=== PATIENT | female | born 1995 | race Caucasian/White ===

== ENCOUNTER → 2022-09-13 | Outpatient (CLI) | payer OTHER, SELFPAY ==
[2022-09-20 12:31] LABS: HPV Reflexed? NOT INDICATED
== END | disposition home or self-care (01) ==
LOC: LABSPEC 12:25
PROVIDERS: PCP Pediatrics; Referring Provider Registered Nurse; Visit Provider Registered Nurse
DX: Z12.4 Encounter for screening for malignant neoplasm of cervix (principal)
CPT/HCPCS: 88175; G0145

== ENCOUNTER → 2023-03-10 | Outpatient (CLI) | payer OTHER, SELFPAY ==
[2023-03-14 22:07] LABS: Chlamydia By Nucleic Acid AMP Negative (Negative); Gonococcus By Nucleic Acid AMP Negative (Negative)
== END | disposition home or self-care (01) ==
LOC: LABSPEC 16:44
PROVIDERS: Visit Provider Advanced Practice Midwife
DX: Z34.90 Encounter for supervision of normal pregnancy, unspecified, unspecified trimester (principal)
CPT/HCPCS: 87086; 87088; 87491; 87591

== ENCOUNTER → 2023-04-04 | Outpatient (CLI) | payer OTHER, SELFPAY ==
[2023-04-04 17:05] LABS: Absolute Lymphocyte Count 2.59 X10^3/uL (0.83-4.51); Absolute Neutrophil Count 5.6 X10^3/uL (2.0-7.7); Basophil# 0.05 X10^3/uL; Basophil% 0.5 % (0-1); Eosinophil# 0.27 X10^3/uL; Eosinophils% 2.9 % (0-5); Hematocrit 40.5 % (37-47); Hemoglobin 13.3 g/dL (12.0-15.0); Lymphocyte # 2.59 X10^3/ul (0.83-4.51); Lymphocyte % 28.2 % (19-41); Mean Corp Hgb Conc 32.8 g/dL (32-36); Mean Corpuscular Hgb 28.7 pg (27.0-32.0); Mean Corpuscular Volume 87.3 fL (81-99); Mean Platelet Vol. 10.5 fl (6.2-12.0); Monocyte# 0.61 X10^3/uL; Monocyte% 6.6 % (0-10); NRBC Flagged by Analyzer 0 % (0-5); Neutrophil # 5.64 X10^3/uL (2.7-7.7); Neutrophil % 61.4 % (47-70); Platelet Count 249 K/mm3 (150-450); RBC Distribution Width CV 13.2 % (11.6-14.6); RBC Distribution Width SD 41.7 fl (35.1-43.9); Red Blood Count 4.64 M/mm3 (4.2-5.4); White Blood Count 9.2 K/mm3 (4.4-11.0)
[2023-04-04 18:59] LABS: HIV - WCH Non-Reactive (Nonreactive); Hepatitis B Surface Antigen Non-Reactive (Nonreactive); Hepatitis C Antibody Non-Reactive (Nonreactive); Rubella IgG Reactive (Nonreactive); Syphilis Antibodies Non-reactive
== END | disposition home or self-care (01) ==
LOC: LAB 16:32
PROVIDERS: Referring Provider Advanced Practice Midwife; Visit Provider Advanced Practice Midwife
DX: Z34.90 Encounter for supervision of normal pregnancy, unspecified, unspecified trimester (principal)
CPT/HCPCS: 36415; 85025; 86703; 86762; 86780; 86803; 86850; 86900; 86901; 87340

== ENCOUNTER → 2023-06-07 | Outpatient (CLI) | payer OTHER, SELFPAY ==
--- OUTSIDE RECORDS SUMMARY | 2023-06-07 17:55 | XMS RPT_ITS | CCD ---
Author Name Unknown Address [facility]ly [facility], [facility] [address] [place] [address] Organization [facility] Care Team Providers Care Disintegrator Operator Name Role Phone KOURTNEY VÁSQUEZ (NICO) Unavailable UnavailBRITTNEY Barcenas Unavailable Unavailable KAMALA SIMON Attending Unavailable ARY PRIMARY CAREMD Primary Care Unavailable GISELLA MAJANO Referring Unavailab kyree TORRES MD Primary Care Unavailable GISELLA MAJANO Referring Unavailab KAMALA Navarro Attending Unavailable Allergies Allergy Classification Reported Allergen(s) Allergy Type Date of Onset Reaction(s) Facility (1 source) amoxicillin; Translations: [AMOXICILLIN] Drug Allergy 5 [facility] (1 source) clarithromycin; Translations: [CLARITHROMYCIN] Drug Allergy 5 [facility] (1 source) OTHER; Translations: [OTHER] Propensity to adverse reactions (disorder) 9 [facility] (1 source) FLAVORING AGENT; Translations: [FLAVORING AGENT] Propensity to adverse reactions to drug (disorder) 5 [facility] Results Test Name Value Interpretation Reference Range Facil ity Encounters Encounter Date Encounter Type Care Provider Facility Start: 06-06-2023 End: 06-06-2023 ambulatory [facility] Start: 05-18-2023 End: 05-18-2023 ambulatory [facility] Start: 01-05-2017 End: 01-05-2017 Ambulatory BRITTNEY DYER [facility] Start: 12-27-2016 End: 12-27-2016 Ambulatory KOURTNEY Benavidez (NICO) FAHAD [facility] jim Payers Date Payer Category Payer Unknown [id number] 1995 Unknown [id number] Unknown [id number] Summary Purpose Family History No Family History Records FoundNo Family History Records Found Advance Directives No Advanced Directives Records FoundNo Advanced Directives Records Found Additional Source Comments INFORMATION SOURCE (unrecogn ized section and content) DATE CREATED AUTHOR AUTHOR'S ORGANIZ ATION 06/07/2023 [facility] FOR RECORDS PERTAINING TO PATIENTS WHO ARE OR HAVE BEEN ENROLLED IN A CHEMICAL DEPENDENCY/SUBSTANCEABUSE PROGRAM, SOME INFORMATION MAY BE OMITTED. This clinical summary was aggregated from multiple sources. Caution should be exercised in using it in the provision of clinical care. This summary normalizes information from multiple sources, and as a consequence, information in this document may materially change the coding, format and clinical context of patient data. In addition, data may be omitted in some cases. CLINICAL DECISIONS SHOULD BE BASED ON THE PRIMARY CLINICAL RECORDS. [facility]. provides no warranty or guarantee of the accuracy or completeness of information in this document.
[2023-06-07 18:02] LABS: NATERA MAILED SPECIMEN
== END | disposition home or self-care (01) ==
LOC: LAB 16:53
PROVIDERS: Referring Provider Obstetrics & Gynecology; Visit Provider Obstetrics & Gynecology
DX: Z34.82 Encounter for supervision of other normal pregnancy, second trimester (principal); Z31.5 Encounter for procreative genetic counseling
CPT/HCPCS: 36415

== ENCOUNTER 2023-07-21 14:37 | Outpatient (CLI) | payer OTHER, SELFPAY ==
[2023-07-21 15:36] LABS: Absolute Lymphocyte Count 0.94 X10^3/uL (0.83-4.51); Absolute Neutrophil Count 3.9 X10^3/uL (2.0-7.7); Basophil# 0.03 X10^3/uL; Basophil% 0.6 % (0-1); Eosinophil# 0.03 X10^3/uL; Eosinophils% 0.6 % (0-5); Hematocrit 37.3 % (37-47); Hemoglobin 12.3 g/dL (12.0-15.0); Lymphocyte # 0.94 X10^3/ul (0.83-4.51); Mean Corpuscular Hgb 30.5 pg (27.0-32.0); Mean Corpuscular Volume 92.6 fL (81-99); Mean Platelet Vol. 11.2 fl (6.2-12.0); Monocyte# 0.23 X10^3/uL; Monocyte% 4.4 % (0-10); NRBC Flagged by Analyzer 0 % (0-5); Neutrophil # 3.92 X10^3/uL (2.7-7.7); Neutrophil % 75.2 % (47-70); Platelet Count 184 K/mm3 (150-450); RBC Distribution Width SD 47.8 fl (35.1-43.9); Red Blood Count 4.03 M/mm3 (4.2-5.4); White Blood Count 5.2 K/mm3 (4.4-11.0)
[2023-07-21 16:28] LABS: Glucose Challenge Gest 1H 50g 86 mg/dL (70-140)
[2023-07-21 16:53] LABS: HIV - WCH Non-Reactive (Nonreactive); Syphilis Antibodies Non-reactive
== END 2023-07-21 23:59 | disposition home or self-care (01) ==
LOC: LAB 14:38
PROVIDERS: Referring Provider Obstetrics & Gynecology; Visit Provider Obstetrics & Gynecology
DX: O26.899 Other specified pregnancy related conditions, unspecified trimester (principal); Z67.91 Unspecified blood type, Rh negative; Z3A.00 Weeks of gestation of pregnancy not specified; Z13.1 Encounter for screening for diabetes mellitus
CPT/HCPCS: 36415; 82950; 85025; 86703; 86780; 86850; 86900; 86901

== ENCOUNTER → 2023-09-14 | Outpatient (CLI) | payer OTHER, SELFPAY | END | disposition home or self-care (01) | PROVIDERS: Visit Provider Obstetrics & Gynecology | DX: Z34.90 Encounter for supervision of normal pregnancy, unspecified, unspecified trimester (principal) | CPT/HCPCS: 87081 ==

== ENCOUNTER 2023-10-03 19:25 | Inpatient (IN) | payer OTHER, SELFPAY ==
[2023-10-03 19:42] VITALS: BMI 22.4
[2023-10-03 19:47] VITALS: BP 113/83; PULSE 74; RESP 16; TEMP 37.1; O2SAT 97
[2023-10-03 20:22] LABS: Absolute Lymphocyte Count 2.71 X10^3/uL (0.83-4.51); Absolute Neutrophil Count 6.4 X10^3/uL (2.0-7.7); Basophil# 0.03 X10^3/uL; Basophil% 0.3 % (0-1); Eosinophil# 0.11 X10^3/uL; Eosinophils% 1.1 % (0-5); Hematocrit 38.4 % (37-47); Hemoglobin 13.2 g/dL (12.0-15.0); Lymphocyte # 2.71 X10^3/ul (0.83-4.51); Lymphocyte % 27.3 % (19-41); Mean Corp Hgb Conc 34.4 g/dL (32-36); Mean Corpuscular Volume 90.1 fL (81-99); Mean Platelet Vol. 11.4 fl (6.2-12.0); Monocyte# 0.62 X10^3/uL; Monocyte% 6.3 % (0-10); NRBC Flagged by Analyzer 0 % (0-5); Neutrophil # 6.37 X10^3/uL (2.7-7.7); Neutrophil % 64.3 % (47-70); Platelet Count 211 K/mm3 (150-450); RBC Distribution Width CV 13.2 % (11.6-14.6); RBC Distribution Width SD 43.7 fl (35.1-43.9); Red Blood Count 4.26 M/mm3 (4.2-5.4); White Blood Count 9.9 K/mm3 (4.4-11.0)
[2023-10-03 21:14] LABS: Syphilis Antibodies Non-reactive
[2023-10-03] MEDS: Lactated Ringers 1,000 ML 50 ML IV (21:42)
[2023-10-03] MEDS: Oxytocin 15 Units/NS 250ml 15 UNITS/250 ML IV.SOLN 2 UNITS IV (21:42)
[2023-10-03] MEDS: 0.9% Saline Lock 10 ML Syringe IV (21:42)
[2023-10-03 21:50] VITALS: BP 107/78; PULSE 62
[2023-10-03 21:51] VITALS: RESP 16; TEMP 37.3; O2SAT 94
--- NOTE | 2023-10-03 22:03 | HP.PCM.OB_ITS ---
HPI - General General Date of Admission: 10/03/23 HPI Narrative YRN DELAROSA, is a 27 y/o @ 39 weeks who presents to L&D after rom plus was noted to be positive from office. The patient had been leaking scant fluid since Tuesday last week. No fevers or chills. She was found to be 2.5/80/-1 in office and ARVIN was 9. She is RH negative and GBS negative. Her baby has a known ventricular septal defect and our pediatricians in [place] are aware. Maternal Data Information MARQUIS Calculator Estimated Delivery Date Method Current WG Current Estimate 10/10/23 LMP (Certain) 39w 1d PFSH PFS Medical History Abnormal Pap smear of cervix Home Medications ?Medication ?Instructions ?Recorded ?Last Taken ?Type multivitamin no.47-iron fum 27 1 cap PO DAILY 03/10/23 10/02/23 History mg-folate no.1 1 mg-dha 300 mg capsule (PNV-DHA) RhoGAM Ultra-Filtered PLUS 1,500 1,500 unit IM ONCE #1 ea 07/22/23 Unknown Clinic unit (300 mcg) intramuscular syringe (rho(D) immune globulin) Allergy/AdvReac Type Severity Reaction Status Date / Time amoxicillin Allergy Mild Hives Verified 10/03/23 21:17 clarithromycin (From Biaxin) Allergy Mild Hives Verified 10/03/23 21:17 Family History Grandmother Breast cancer, Onset Age: 60 Social History adopted: No household members: spouse housing: apartment current occupational status: employed 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 current occupational exposures/hazards: No pets and animals: No history of recent travel: No sexually active: Yes Smoking Status: Never smoker second hand exposure: No alcohol intake: current details: socially - not while substance use type: does not use during the past year weight has: remained stable what type of physical activity do you participate in: running frequency: 5-6 times per week osbaldo/yarsani: [employer] seatbelt use: always do you feel safe at home: Yes additional social history: Indra FRAUSTO at [employer] History 1 Elective abortions Hx Para 0 Spontaneous abortions Hx # Term Pregnancies Ectopic pregnancies Hx # Pregnancies Multiple births # of living children Visit Details Expected Delivery Route/Plan Labor Preferences- CB/BF classes: yes labor support person: Indra labor intervention preferences: pain management options preferred: prefer minimal intervention, open to touch, massage, counting breathing, hydrotherapy cut cord/dad catch: indra yes! : yes PP control planned: [] discussed possible routes of delivery and associated risks: [] special requests: [] Plans Covid status: [] Flu vaccine: dec Tdap vaccine: given Rhogam: na LARC form signed: declined movement and labor precautions reviewed. Problem list reviewed and updated with the most current plan of care details and appropriate orders placed. Relevant counseling for the gestational age provided. Continue routine care and follow up unless otherwise noted in visit notes/problem list details OB Flowsheet Initial Weight: Not Recorded Date -?-?-?--?-?-?-?-?-?-?-?-?- EGA Weight BP Urine Prot -?-?-?-?-?-?-?-?-?-?-?-?- Glucose FHR FuHt Pres Dilation -?-?-?-?-?-?-?-?-?-?-?-?- Effaced St Visit Note 03/10/23 -?-?-?-?-?-?-?-?-?-?-?-?- 9w 3d 126 lb 8 oz 119/79 -?-?-?-?-?-?-?-?-?-?-?-?- 181 -?-?-?-?-?-?-?-?-?-?-?-?- KW-CRL cons with dates. undecided NIPT. 04/04/23 -?-?-?-?-?-?-?-?-?-?-?-?- 13w 0d 129 lb 6 oz 113/71 Nega tive -?-?-?-?-?-?-?-?-?-?-?-?- Negative 156 -?-?-?-?-?-?-?-?-?-?-?-?- JV- no complaint s today. anatomy ultrasound ordered with [facility]. declines NIPT. 05/02/23 -?-?-?-?-?-?-?-?-?-?-?-?- 17w 0d 134 lb 8 oz 97/52 Nega tive -?-?-?-?-?-?-?-?-?-?-?-?- Negative 154 -?-?-?-?-?-?-?-?-?-?-?-?- JV- no complaint s today. not feeling movement yet. no cramping or spotting. 06/03/23 -?-?-?-?-?-?-?-?-?-?-?-?- 21w 4d 138 lb 2 oz 117/71 Nega tive -?-?-?--?-?-?-?-?-?-?-?-?- Negative 155 -?-?-?-?-?-?-?-?-?-?-?-?- JV- FOB diagnose d with FAP and nervous baby is at 50% chance of having this. plan for testing after delivery. now wants NIPT and carrier testing. baby has a VSD and echo is scheduled. 06/28/23 -?-?-?-?-?-?-?-?-?-?-?-?- 25w 1d 141 lb 112/70 Negative -?-?-?-?-?-?-?-?-?-?-?-?- Negative 147 -?-?-?-?-?-?-?-?-?-?-?-?- JV- pt is a lima ier now for CF, usher syndrom and AR polycystic kidney disease. FOB being tested. heart defect on echo- peds here does not feel comfortable with us delivering here. GCT ordered. 07/21/23 -?-?-?-?-?-?-?-?-?-?-?-?- 28w 3d 140 lb 105/65 105/65 Negative -?-?-?-?-?--?-?-?-?-?-?-?- Negative 145 -?-?-?-?-?-?-?-?-?-?-?-?- Sm- Sm- no vb lof good fm n oreg ualr ctx discussed testing FOB for rh blood type and redraw for extended carrier panel, wrong lab drawn previously. 08/03/23 -?-?-?-?-?-?-?-?-?-?-?-?- 30w 2d 142 lb 2 oz 106/68 Nega tive -?-?-?-?-?-?-?-?-?-?-?-?- Negative 144 28 -?-?-?-?-?-?-?-?-?-?-?-?- JV- should know after August where can deliver. sounds like 99% sure can deliver with us. 08/25/23 -?-?-?-?-?-?-?-?-?-?--?-?- 33w 3d 143 lb 102/62 Negative -?-?-?-?-?-?-?-?-?-?-?-?- Negative 140 32 -?-?-?-?-?-?-?-?-?-?-?-?- SM- no vb lof go od fm n reular ctx. MFM recommendeddelivery here, will obtain echo report and discuss with peds to obtain permission 09/07/23 -?-?-?-?-?-?-?-?-?-?-?-?- 35w 2d 142 lb 6 oz 119/69 Nega tive -?-?-?-?-?-?-?-?-?-?-?-?- Negative 135 34.5 Cephalic -?-?-?-?-?-?-?-?-?-?-?-?- JV- no JV- FOB asks if she is suppo sed to have nsts. no mention in MFM note but will send them a message. no complaints toda. 09/14/23 -?-?-?-?-?-?-?-?-?-?-?-?- 36w 2d 141 lb 6 oz 110/68 Nega tive -?-?-?-?-?-?-?-?-?-?-?-?- Negative 140 33 Cephalic 1 .5 -?-?-?-?-?-?-?-?-?-?-?-?- 70 0 KW-no vb/l of/ctx. good fm. GBS today. has growth next week with MFM. ARVIN-9 per JV scan 09/22/23 -?-?-?-?-?-?-?-?-?-?-?-?- 37w 3d 140 lb 105/74 -?-?-?-?-?-?-?-?-?-?-?-?- 140 35 Cephalic -?-?-?-?-?-?-?-?-?-?-?-?- SM- no vb lof go od fm no regular ctx 09/27/23 -?-?-?-?-?-?-?-?-?-?-?-?- 38w 1d 143 lb 106/68 -?-?-?-?-?-?-?-?-?-?-?-?- 140 35 Cephalic -?-?-?-?-?-?-?-?-?-?-?-?- SM- no vb lof go od fm nor egular ctx ARVIN 6.8 cm- recommend repeat next week either in office or formal. reviewed preferences 10/03/23 -?-?-?-?-?-?-?-?-?-?-?-?- 39w 0d 142 lb 6 oz 112/73 Nega tive -?-?-?-?-?-?-?-?-?-?-?-?- Negative 138 Cephalic 2 -?-?-?-?-?-?-?-?-?-?-?-?- 80 -1 JV- ARVIN to day is 9 cm. has some leaking fluid. stat Amnisure sent. rpt arvin again in a week. baby very low ROS Constitutional Constitutional: Denies change in weight, fatigue, fever(s), headache(s), poor appetite or weakness Eyes Eyes: Denies blurry vision, change in vision, seeing flashes or spots in vision ENT HEENT: Denies dizziness, headache(s), loss taste/smell or sore throat Cardiovascular Cardiovascular: Denies chest pain, dizziness, dyspnea, irregular heart rhythm, leg edema, palpitations, rapid heart rate or vomiting Respiratory/Chest Respiratory/Chest: Denies chest tightness, cough, dyspnea or breast pain Gastrointestinal Gastrointestinal: Denies abdominal pain, anorexia, constipation, cramping, diarrhea, hemorrhoids, vomiting or weight changes Genitourinary Genitourinary: Denies dysuria, flank pain, genital lesions, genital pain, urinary frequency or urinary urgency Musculoskeletal Musculoskeletal: Denies back pain, difficulty walking, joint pain, limited range of motion, muscle cramps or numbness Integumentary Integumentary: Denies lesions or unusual bruising Neurologic Neurologic: Denies abnormal movements, abnormal speech, dizziness, numbness, seizure-like activity or syncope Psychiatric Psychiatric: Denies anxiety, behavioral changes, change in appetite, change in libido, cognitive impairment, confusion, depression, difficulty concentrating, hallucinations or suicidal thoughts Endocrine Endocrinology: Denies excessive sweating, polydipsia or polyuria Hematologic/Lymphatic Hematologic/Lymphatic: Denies easy bleeding, easy bruising or lymphadenopathy Allergic/Immunologic Allergic/Immunologic: Denies itchy eyes, lip swelling, seasonal rhinorrhea, rhinitis, throat swelling, tongue swelling, eczemia, wheezing or asthma Vital Signs Vital Signs Vital Signs: 10/03/23 19:47 10/03/23 19:47 10/03/23 19:47 Temperature Temperature Source Temporal Pulse Rate 74 Respiratory Rate Blood Pressure 113/83 H BP Systolic 113 BP Diastolic 83 Pulse Ox 10/03/23 19:47 10/03/23 19:47 10/03/23 19:47 Temperature 98.8 F Temperature Source Pulse Rate Respiratory Rate 16 Blood Pressure BP Systolic BP Diastolic Pulse Ox 97 10/03/23 21:50 10/03/23 21:50 10/03/23 21:51 Temperature Temperature Source Temporal Pulse Rate 62 Respiratory Rate Blood Pressure 107/78 BP Systolic 107 BP Diastolic 78 Pulse Ox 10/03/23 21:51 10/03/23 21:51 10/03/23 21:51 Temperature 99.2 F H Temperature Source Pulse Rate Respiratory Rate 16 Blood Pressure BP Systolic BP Diastolic Pulse Ox 94 10/03/23 22:47 10/03/23 22:47 10/03/23 22:47 Temperature Temperature Source Pulse Rate 51 L Respiratory Rate Blood Pressure 89/59 L BP Systolic 89 BP Diastolic 59 Pulse Ox 97 10/03/23 22:47 10/03/23 22:47 10/03/23 22:47 Temperature 97.0 F L Temperature Source Temporal Pulse Rate Respiratory Rate 16 Blood Pressure BP Systolic BP Diastolic Pulse Ox 10/03/23 23:53 10/03/23 23:53 10/03/23 23:53 Temperature Temperature Source Pulse Rate 55 L Respiratory Rate Blood Pressure 93/58 L BP Systolic 93 BP Diastolic 58 Pulse Ox 97 10/03/23 23:54 10/03/23 23:54 10/03/23 23:54 Temperature Temperature Source Temporal Pulse Rate Respiratory Rate 16 Blood Pressure BP Systolic BP Diastolic Pulse Ox 97 10/03/23 23:54 10/04/23 01:01 10/04/23 01:01 Temperature 97.7 F L Temperature Source Pulse Rate 55 L Respiratory Rate Blood Pressure 105/70 BP Systolic 105 BP Diastolic 70 Pulse Ox 10/04/23 01:01 10/04/23 01:01 10/04/23 01:02 Temperature Temperature Source Temporal Pulse Rate Respiratory Rate 16 Blood Pressure BP Systolic BP Diastolic Pulse Ox 97 10/04/23 01:02 10/04/23 02:33 10/04/23 02:33 Temperature 97.8 F Temperature Source Pulse Rate 58 L Respiratory Rate Blood Pressure 101/68 BP Systolic 101 BP Diastolic 68 Pulse Ox 10/04/23 02:33 10/04/23 02:35 10/04/23 02:35 Temperature 97.8 F Temperature Source Temporal Pulse Rate Respiratory Rate 16 Blood Pressure BP Systolic BP Diastolic Pulse Ox 10/04/23 03:51 10/04/23 03:51 10/04/23 03:51 Temperature Temperature Source Temporal Pulse Rate 60 Respiratory Rate Blood Pressure 123/80 H BP Systolic 123 BP Diastolic 80 Pulse Ox 10/04/23 03:51 10/04/23 03:51 10/04/23 04:57 Temperature 95.0 F L Temperature Source Temporal Pulse Rate Respiratory Rate 17 Blood Pressure BP Systolic BP Diastolic Pulse Ox 10/04/23 04:57 10/04/23 04:57 10/04/23 04:57 Temperature Temperature Source Pulse Rate 71 Respiratory Rate 18 Blood Pressure 116/82 H BP Systolic 116 BP Diastolic 82 Pulse Ox 10/04/23 04:57 10/04/23 06:18 10/04/23 06:18 Temperature 96.0 F L Temperature Source Pulse Rate 57 L Respiratory Rate Blood Pressure 101/64 BP Systolic 101 BP Diastolic 64 Pulse Ox 10/04/23 06:18 10/04/23 06:22 10/04/23 06:22 Temperature 97.4 F L Temperature Source Temporal Pulse Rate Respiratory Rate 17 Blood Pressure BP Systolic BP Diastolic Pulse Ox 10/04/23 06:24 10/04/23 06:24 Temperature Temperature Source Pulse Rate 67 Respiratory Rate Blood Pressure BP Systolic BP Diastolic Pulse Ox 97 Weight Weight: 143 lb 4 oz Body Mass Index (BMI) 22.4 Physical Exam Const alert, oriented x3, no apparent distress and healthy appearing General Appearance: cooperative; Negative for anxious HEENT normocephalic Face and Sinus: normal facial exam Eyes EOMs intact bilaterally and no scleral icterus General Eye: normal appearance of both eyes Neck full ROM and supple Lymph Lymphatic: no lymphadenopathy noted Chest Chest: abnormal inspection of the chest Resp normal respiratory effort Effort and Inspection: able to speak in complete sentences Cardio regular rate GI soft to palpation and non-tender Inspection: gravid Palpation: soft; Negative for tender external exam normal Amniotic Fluid: ROM+plus Back/Spine no CVA tenderness Extremity normal to inspection, full ROM and no clubbing, cyanosis or edema General Extremity: Negative for calf tenderness or edema Skin Lesions: no lesions Rashes: no rashes Psych mental status grossly normal Labs Labs Labs: Blood Type A NEGATIVE Antibody Screen NEGATIVE Hct 38.4 % (37-47) Hgb 13.2 g/dL (12.0-15.0) Pap Smear Positive Syphilis Total Ab Non-reactive Rubella IgG Antibody Reactive (Nonreactive) Hep Bs Antigen Non-Reactive (Nonreactive) Hepatitis C Antibody Non-Reactive (Nonreactive) Chlamydia DNA ([facility]) Negative (Negative) N.gonorrhoeae DNA ([facility]) Negative (Negative) HIV 1&2 Antibody Non-Reactive (Nonreactive) Glucose 1 Hr 50 gm 86 mg/dL (70-140) Assessment & Plan (1) ARVIN (amniotic fluid index) borderline low: COMMENT: on 09/26 was 6.8 cm in office, reviewed kick counts and plan repeat in 1 week either in office or [facility] rpt was 9.3 on 10/03/23 (2) Abnormal genetic test during : COMMENT: carrier for CF, AR polycystic kidney disease, 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 patient requesting repeat discussion with peds after 32 week echo due to peds cardio and MFM encouragement. -final plan for decision to deliver in [place] will be made during ultrasound follow up in July. However, [place] peds still may not feel comfortable and will need to conference with them before deciding ok to deliver here- Dr. Benito downs approved delivery in [place] -asking mfm if they recommend NSts - nothing in their notes as of 35 weeks. 09/07 MFM states no nst/bpp required. (4) Rh negative status during : COMMENT: rhogam at 28 week and PRN. discussed checking husbands blood type and if rh negative, will not give rhogam, will check fetus after delivery. Indra is rh positive, will give rhogam. (5) Supervision of normal : COMMENT: PRR, MARQUIS 10/10/23 Spouse Indra (6) : QUALIFIERS: Weeks of gestation: 39 weeks Qualified Code(s): Z3A.39 - 39 weeks gestation of COMMENT: carrier and NIPT reviewed. afp declined. anatomy reviewed. PLAN: Plan Patient presents IOL, plan management for with pitocin Pain management: none . GBS negative. Management of any complications: see HPI and above I have reviewed the [facility] and made any clinically relevant updates.
[2023-10-03 22:47] VITALS: BP 89/59; PULSE 51; RESP 16; TEMP 36.1; O2SAT 97
[2023-10-03 23:53] VITALS: BP 93/58; PULSE 55; O2SAT 97
[2023-10-03 23:54] VITALS: RESP 16; TEMP 36.5; O2SAT 97
[2023-10-04] VITALS (32 sets, daily range): BP systolic 101–123; BP diastolic 58–82; PULSE 55–103; RESP 15–18; TEMP 35–36.7; O2SAT 97–100
[2023-10-04] MEDS: Ondansetron 4 MG/2 ML Vial IV (04:53)
[2023-10-04] MEDS: 0.9% Saline Lock 10 ML Syringe IV ×2 (04:53→06:29)
[2023-10-04] MEDS: proCHLORPERazine 10 MG/2 ML Vial IV (06:29)
--- NOTE | 2023-10-04 08:00 | PCM.PN.BLA ---
Progress Note Coping well with contractions current tracing: FHT: 135 Moderate variability reactive no decelerations category I tracing [place]: 2-3 minute Contractions Membranes: ruptured tuesday remains clear SVE:/ A/P: Continue with position changes Titrate pitocin per protocol GBS neg- no prophylaxis needed Anticipate Dr Cardenas aware of above assessment and agrees with plan of care Assessment & Plan Assessment/Plan (1) ARVIN (amniotic fluid index) borderline low: (2) Abnormal genetic test during : (3) ventricular septal defect affecting antepartum care of mother: (4) Rh negative status during : (5) Supervision of normal : (6) : QUALIFIERS: Weeks of gestation: 39 weeks Qualified Code(s): Z3A.39 - 39 weeks gestation of Multi Select Codes Urinary/Genital Urinary/Genital CPT Codes: No Charge
[2023-10-04] MEDS: fentaNYL 100 MCG/2 ML Ampul IV (09:20)
[2023-10-04] MEDS: Lidocaine 1% (20 ml mdv) 20 ML Vial INFILT (09:20)
--- NOTE | 2023-10-04 10:20 | OP.PCM_ITS ---
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 patient requesting repeat discussion with peds after 32 week echo due to peds cardio and MFM encouragement. -final plan for decision to deliver in [place] will be made during ultrasound follow up in July. However, [place] peds still may not feel comfortable and will need to conference with them before deciding ok to deliver here- Dr. Sterling approved delivery in [place] -asking mfm if they recommend NSts - nothing in their notes as of 35 weeks. 09/07 MFM states no nst/bpp required. (5) Rh negative status during : COMMENT: rhogam at 28 week and PRN. discussed checking husbands blood type and if rh negative, will not give rhogam, will check fetus after delivery. Nick is rh positive, will give rhogam. (6) Supervision of normal : COMMENT: PRR, MARQUIS 10/10/23 Spouse Nick (7) : QUALIFIERS: Weeks of gestation: 39 weeks Qualified Code(s): Z3A.39 - 39 weeks gestation of COMMENT: carrier and NIPT reviewed. afp declined. anatomy reviewed. Maternal Data Information MARQUIS Calculator Estimated Delivery Date Method Current WG Current Estimate 10/10/23 LMP (Certain) 39w 1d Final MARQUIS: 10/10/23 Final MARQUIS Source: US >20 weeks Gestational age: 39.1 Vaginal Delivery Maternal Presentation Maternal Presentation: Progressed well to 10cm dilated and made steady progress with effective maternal pushing. Delivered the head in RONALDO presentation. The head was delivered atraumatically and no nuchal cord was identified. The anterior and posterior shoulders delivered without complication followed by the rest of the infant and the infant was placed on the maternal abdomen. Delayed cord clamping was employed for approximately 3 minutes. Cord was clamped and cut and gentle tra ction was applied to the cord and the placenta delivered spontaneously. Immediately following, it was noted to be intact with a 3 vessel cord. The perineum and vagina were inspected and noted to have a small second degree laceration which was repaired with 3-0 Vicryl in the usual fashion, and bilateral periurethral lacerations which were repaired . EBL was 300cc. Patient and tolerated delivery well. Apgars 8/9. Dr Cardenas notified of vaginal delivery and orders reviewed. Physician agrees with current plan of care. 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: Julee Blanc Type of Anesthesia: None Estimated Blood Loss: 300 Time of Delivery: 09:06 Findings Presentation: Vertex Amniotic Membrane Rupture Type: Spontaneous Amniotic Fluid Description: Clear Placental Delivery Description: Spontaneous Placenta Disposition: [facility] Cord Vessel Description: 3 Vessels Cord Entanglement: None Infant A Gender: Female (1 minute): 8 (5 minute): 9 Delayed Cord Clamping: Yes Post Vaginal Delivery Medications Given After Delivery: IV Pitocin Episiotomy Description: None Laceration: Periurethral Extnsion/lac and 2nd degree Complication Complications: None Multi Select Codes Urinary/Genital Urinary/Genital CPT Codes: 38848 Vaginal Delivery [facility]
--- NOTE | 2023-10-04 10:26 | DCINST_ITS ---
Discharge Instructions Diet Discharge Diet: No restrictions Activity Discharge Activity: Return to Normal Activity May resume sexual activity in: 6-8 weeks Dressing / Incision Call your doctor if you observe: Fever of 101 or Higher, Coldness, Increased Pain, Numbness or Tingling, Change in Color, Inability to urinate, Inability to have a bowel movement, Using more than 1 pad per hour, Shortness of breath, Dizziness, Fainting spells, Swelling in the ankles, Chest pain, Increased palpitations (irregular heartbeat), Calf discomfort and Uncontrolled pain Follow Up Care Please Follow Up With: Julee Blanc CNM When: Please call the office to schedule your follow up appointment in 6 weeks. If you had high blood pressure please call to schedule an appointment in 2 weeks. Test Results: Test results from this visit will be discussed in further detail at your follow- up appointment, if applicable. Discharge Plan Admission Admit Date/Time: 10/03/23 19:25 Attending Provider: Julee Blanc Primary Care Provider: Care Physician,No Primary Discharge Orders/Prescriptions Prescriptions: No Action PNV-DHA 27 mg iron-1 mg -300 mg capsule 1 cap PO DAILY RhoGAM Ultra-Filtered PLUS 1,500 unit (300 mcg) syringe 1,500 unit IM ONCE Qty: 1 0RF Referrals / Follow Up: Care Physician,No Primary [Primary Care Provider] -
[2023-10-04] MEDS: Acetaminophen 500 MG Tablet 1000 MG PO (11:32)
[2023-10-04] MEDS: Ibuprofen 600 MG Tablet PO (20:46)
--- NOTE | 2023-10-04 22:23 | NURSING ---
this RN offered to perfrom baby bath demo. pt declines bath while in hospital. saritha pass along in bedside report in AM.
[2023-10-05 00:13] VITALS: BP 109/82; PULSE 55; RESP 16; TEMP 36.2
[2023-10-05 04:20] VITALS: BP 96/65; PULSE 57; RESP 16; TEMP 36.3
[2023-10-05] MEDS: Rho(D) Immune Globulin 300 MCG (1500 Unit) Syringe IV (07:20)
[2023-10-05 07:22] VITALS: BP 105/67; PULSE 60; RESP 16; TEMP 36.2; O2SAT 98
--- NOTE | 2023-10-05 07:58 | PN.OBGYN_ITS ---
Subjective Subjective Patient doing well without complaints. Tolerating PO. Ambulating and voiding without difficulty. Feeding well. Denies chest pain, shortness of breath, calf pain/swelling, fevers, chills, lightheadedness. Objective Data Objective Data Vital Signs: Vital Signs Temp Pulse Resp BP Pulse Ox O2 Del Method 97.2 F L 60 16 105/67 98 Room Air 10/05/23 07:22 10/05/23 07:22 10/05/23 07:22 10/05/23 07:22 10/05/23 07:22 10/05/23 07:22 Oxygen Delivery Method Room Air Weight: 143 lb 4 oz Body Mass Index (BMI) 22.4 Intake & Output: Intake and Output for Last 24 Hours 10/03/23 10/04/23 10/05/23 23:59 23:59 23:59 Intake Total 6.56 / 6.56 609.07 / 609.07 Output Total Balance 6.56 / 6.56 608.07 / 608.07 -1 Lab / Micro Data 10/03/23 15:55 Labs: Laboratory Results - last 24 hr 10/04/23 14:00: Screen NEGATIVE, Baby's Blood Type A POSITIVE, Baby's NOELLE NEGATIVE Physical Exam Const alert and oriented x3 HEENT normocephalic Eyes PERRL Neck full ROM Resp normal respiratory effort GI soft to palpation GI Narrative: FF below U Assessment & Plan (1) Vaginal delivery: COMMENT: KW 39.1 girl Jerri (2) ventricular septal defect affecting antepartum care of mother: QUALIFIERS: Fetus number: single or unspecified fetus Qualified Code(s): O35.BXX0 - Maternal care for other (suspected) abnormality and damage, cardiac anomalies, not applicable or unspecified COMMENT: [facility] OK to deliver here- has Prominent coronary sinus, persistent Left SVC and VSD - being referred to [facility] per last report at 22 week scan. patient requesting repeat discussion with peds after 32 week echo due to peds cardio and MFM encouragement. -final plan for decision to deliver in [place] will be made during ultrasound follow up in July. However, [place] [facility] still may not feel comfortable and will need to conference with them before deciding ok to deliver here- Dr. Sterling approved delivery in [place] -asking mfm if they recommend NSts - nothing in their notes as of 35 weeks. 09/07 MFM states no nst/bpp required. Stable and doing well pp (3) Rh negative status during : QUALIFIERS: Trimester: unspecified trimester Qualified Code(s): O 26.899 - Other specified related conditions, unspecified trimester; Z67.91 - Unspecified blood type, Rh negative COMMENT: rhogam at 28 week and PRN. discussed checking husbands blood type and if rh negative, will not give rhogam, will check fetus after delivery. Nick is rh positive, will give rhogam. PLAN: Plan s/p PPD # 1 1. routine post delivery care 2. breast feeding- support given 3. rh negative 4. rubella immune 5. home today
[2023-10-05 14:00] VITALS: BP 108/75; PULSE 65; RESP 16; TEMP 36.7; O2SAT 99
[2023-10-05] MEDS: Acetaminophen 500 MG Tablet 1000 MG PO (16:57)
[2023-10-05 19:30] VITALS: BP 101/70; PULSE 60; RESP 16; TEMP 36.4; O2SAT 99
[2023-10-06 02:00] VITALS: BP 107/79; PULSE 63; RESP 16; TEMP 36.7; O2SAT 99
[2023-10-06 07:38] VITALS: BP 107/75; PULSE 57; RESP 17; TEMP 36.4
[2023-10-06] MEDS: Ibuprofen 600 MG Tablet PO (07:56)
--- NOTE | 2023-10-06 09:10 | PCM.PN.OB ---
Subjective Subjective Patient doing well without complaints. Tolerating PO. Ambulating and voiding without difficulty. feeding well. Denies chest pain, shortness of breath, calf pain/swelling, fevers, chills, lightheadedness. Objective Data Objective Data Vital Signs: Vital Signs Temp Pulse Resp BP Pulse Ox O2 Del Method 97.6 F L 57 L 17 107/75 99 Room Air 10/06/23 07:38 10/06/23 07:38 10/06/23 07:38 10/06/23 07:38 10/06/23 02:00 10/06/23 07:38 Oxygen Delivery Method Room Air Weight: 143 lb 4 oz Body Mass Index (BMI) 22.4 Intake & Output: Intake and Output for Last 24 Hours 10/04/23 10/05/23 10/06/23 23:59 23:59 23:59 Intake Total 609.07 / 609.07 Output Total Balance 608.07 / 608.07 - Lab / Micro Data 10/03/23 15:55 ROS Constitutional Constitutional: Reports systems reviewed and no addt'l complaints, except as documented Cardiovascular Cardiovascular: Reports systems reviewed and no addt'l complaints, except as documented Respiratory/Chest Respiratory/Chest: Reports systems reviewed and no addt'l complaints, except as documented Gastrointestinal Gastrointestinal: Reports systems reviewed and no addt'l complaints, except as documented Physical Exam Const alert, oriented x3 and no apparent distress HEENT Head and Scalp: atraumatic Resp normal respiratory effort GI soft to palpation and non-tender Bimanual Exam - Vag & Uterus: uterus non-tender Uterus Palpation: uterus fundus firm (below Umbilicus) Assessment & Plan (1) Vaginal delivery: COMMENT: KW 39.1 girl Jerri PLAN: Plan routine PP care vulvar area examined and clitoral ecchymoses no hematoma
[2023-10-06 09:21] VITALS: BP 107/75; PULSE 57; RESP 16; TEMP 36.4
[2023-10-06 10:04] VITALS: BP 107/75; PULSE 57; RESP 15; TEMP 36.6
--- NOTE | 2023-10-08 03:22 | PCM.DC.SUM ---
Providers Date of Admission: 10/03/23 Primary Care Physician: No Primary Care Phys Reason For Visit: VAGINAL DELIVERY Diagnosis Discharge Diagnosis (1) Vaginal delivery: Status: Acute Code(s): O80 - Encounter for full-term uncomplicated delivery Plan routine PP care vulvar area examined and clitoral ecchymoses no hematoma Medications at Discharge Home Medications multivitamin no.47-iron fum 27 mg-folate no.1 1 mg-dha 300 mg capsule (PNV-DHA) 1 cap PO DAILY 03/10/23 RhoGAM Ultra-Filtered PLUS 1,500 unit (300 mcg) intramuscular syringe (rho(D) immune globulin) 1,500 unit IM ONCE #1 ea 07/22/23 Hospital Course Summary of Care Provided Hospital Course: presented with [facility] proceeded to have pit AOL, delivered uncomplicated routine recoveyr dc home ppd 2 Weight / BMI Weight Weight: 143 lb 4 oz Body Mass Index (BMI) 22.4 ABG / Lab / Microbiology Data 10/03/23 15:55 D/C Instructions Discharge Diet: No restrictions May resume sexual activity in: 6-8 weeks Call your doctor if you observe: Fever of 101 or Higher, Coldness, Increased Pain, Numbness or Tingling, Change in Color, Inability to urinate, Inability to have a bowel movement, Using more than 1 pad per hour, Shortness of breath, Dizziness, Fainting spells, Swelling in the ankles, Chest pain, Increased palpitations (irregular heartbeat), Calf discomfort and Uncontrolled pain Please Follow Up With: Julee Blanc CNM When: Please call the office to schedule your follow up appointment in 6 weeks. If you had high blood pressure please call to schedule an appointment in 2 weeks. Meaningful Use Info Meaningful Use Meaningful Use Diagnoses (Choose all that apply): None applicable Ischemic Stroke Statin Dosing Therapy Reference: STATIN DOSE THERAPY REFERENCE: * Patients > 75 years receive moderate or high dose statin therapy. * Patients 75 years or YOUNGER should receive HIGH intensity statin dose unless contraindicated. You will be required to document reason for non-treatment if statin daily dose does not meet guidelines. HIGH DOSE STATIN THERAPY DAILY Atorvastatin > than or = to 40 mg Rosuvastatin > than or = to 20 mg Amlodipine + Atorvastatin > than or = to 2.5/40 mg Ezetimibe + Simvastatin 10/80 mg Simvastatin 80mg Discharge Plan Admission Admit Date/Time: 10/03/23 19:25 Attending Provider: Julee Blanc Primary Care Provider: Care Physician,No Primary Discharge Orders/Prescriptions Prescriptions: No Action PNV-DHA 27 mg iron-1 mg -300 mg capsule 1 cap PO DAILY RhoGAM Ultra-Filtered PLUS 1,500 unit (300 mcg) syringe 1,500 unit IM ONCE Qty: 1 0RF Referrals / Follow Up: Care Physician,No Primary [Primary Care Provider] - Disposition Disposition (needs filled in before D/C Order can be placed): Home, Self Care
== END 2023-10-06 10:04 | disposition home or self-care (01) | DRG 807 ==
PROVIDERS: Obstetrics & Gynecology; Admitting Provider Advanced Practice Midwife; Visit Provider Advanced Practice Midwife
DX: O41.03X0 Oligohydramnios, third trimester, not applicable or unspecified (principal); Z37.0 Single live birth; O35.BXX0 Maternal care for other (suspected) fetal abnormality and damage, fetal cardiac anomalies, not applicable or unspecified; O70.1 Second degree perineal laceration during delivery; Z3A.39 39 weeks gestation of pregnancy; Z67.91 Unspecified blood type, Rh negative
CPT/HCPCS: 59025; 59050; 85025; 85461; 86780; 86850; 86900; 86901; 90384; 99221; A4216; G0378; J2405; J2790; J2791

== ENCOUNTER → 2023-10-03 | Outpatient (CLI) | payer OTHER, SELFPAY ==
[2023-10-03 17:12] LABS: ROM Internal Control Test YES-OK TO RESULT pt. (Internal QC)
[2023-10-03 17:18] LABS: ROM Patient Test POSITIVE (Negative)
== END | disposition home or self-care (01) ==
LOC: LABSPEC 16:43
PROVIDERS: Referring Provider Obstetrics & Gynecology; Visit Provider Obstetrics & Gynecology
DX: O26.899 Other specified pregnancy related conditions, unspecified trimester (principal); N89.8 Other specified noninflammatory disorders of vagina; Z3A.00 Weeks of gestation of pregnancy not specified; O99.891 Other specified diseases and conditions complicating pregnancy
CPT/HCPCS: 84112

== ENCOUNTER → 2024-12-19 | Outpatient (CLI) | payer OTHER, SELFPAY ==
[2024-12-21 04:07] LABS: Chlamydia By Nucleic Acid AMP Negative (Negative); Gonococcus By Nucleic Acid AMP Negative (Negative)
== END | disposition home or self-care (01) ==
LOC: LABSPEC 11:04
PROVIDERS: Visit Provider Obstetrics & Gynecology
DX: O09.90 Supervision of high risk pregnancy, unspecified, unspecified trimester (principal); Z3A.00 Weeks of gestation of pregnancy not specified
CPT/HCPCS: 87086; 87491; 87591

== ENCOUNTER → 2025-01-24 | Outpatient (CLI) | payer OTHER, SELFPAY ==
[2025-01-24 17:08] LABS: Hematocrit 39.0 % (37-47); Hemoglobin 13.5 g/dL (12.0-15.0); Immature Granulocytes Count 0.040 X10^3/uL (0.0-0.0); Mean Corp Hgb Conc 34.6 g/dL (32-36); Mean Corpuscular Volume 85.9 fL (81-99); Mean Platelet Vol. 10.1 fl (6.2-12.0); NRBC Flagged by Analyzer 0 % (0-5); Platelet Count 259 K/mm3 (150-450); RBC Distribution Width CV 13.2 % (11.6-14.6); RBC Distribution Width SD 41.2 fl (35.1-43.9); Red Blood Count 4.54 M/mm3 (4.2-5.4); White Blood Count 6.9 K/mm3 (4.4-11.0)
[2025-01-24 17:46] LABS: HIV Nonreactive (Nonreactive); Hepatitis B Surface Antigen Nonreactive (Nonreactive); Hepatitis C Antibody Nonreactive (Nonreactive); Syphilis Antibodies Nonreactive (Nonreactive)
== END | disposition home or self-care (01) ==
PROVIDERS: Obstetrics & Gynecology; Visit Provider Advanced Practice Midwife
DX: Z34.01 Encounter for supervision of normal first pregnancy, first trimester (principal)
CPT/HCPCS: 36415; 85025; 86703; 86762; 86780; 86803; 86850; 86900; 86901; 87340

== ENCOUNTER → 2025-05-22 | Outpatient (CLI) | payer OTHER, SELFPAY ==
--- OUTSIDE RECORDS SUMMARY | 2025-05-22 09:34 | XMS RPT_ITS | CCD ---
Author Organization [facility] Care Team Providers Care [employer] Press Operator Name Role Phone KOURTNEY VÁSQUEZ (DRIVER GUARD) Unavailable UnavailBRITTNEY Barcenas Unavailable Unavailable Dr. Jb [place] Primary Care Provider Dr. Jb [place] Referring Provider ANASTASIA Delaney Attending Provider 1(330) ANASTASIA Blanc Attending Provider 1(330) Care Physician, No Primary Primary Care Provider Unavailable Care Physician, No Primary Referring Provider Un available ANASTASIA Blanc Attending Provider 1(330) Care Physician, No Primary Primary Care Provider Unavailable Care Physician, No Primary Referring Provider Un available Dr. Mohini Arias Attending Provider 1(08 19) Care Physician, No Primary Primary Care Provider Unavailable Care Physician, No Primary Referring Provider Un available Dr. Mohini Arias Attending Provider 1(08 19) Dr. Marisela Rodriguez Attending Provider 1(330 ) ANASTASIA Blanc Attending Provider 1(330) Care Physician, No Primary Primary Care Provider Unavailable Sarah Goncalves RN Attending Provider Unavailabl e Care Physician, No Primary Referring Provider Un available Dr. Mohini Arias DO Attending Provider Dr. Marisela Rodriguez MD Attending Provider Care Physician, No Primary Primary Care Physicia n Unavailable Sarah Goncalves RN Attending Physician Unavailab le Dr. Mohini Arias DO Attending Physician Dr. Marisela Rodriguez MD Attending Physician Julee Blanc CNM Attending Physician 1(330) Surendra HANDCAmairani Attending Physician [phone])2 Mohini Arias Attending Unavailabl e Care Physician, No Primary Referring Unava ilable Care Physician, No Primary Primary Care Unava ilable Amairani Agosto NP Attending Unavailable Care Physician, No Primary Referring Unava ilable Care Physician, No Primary Primary Care Unava ilable Care Physician, No Primary Primary Care Unava ilable Marisela Rodriguez Attending Unavailable Care Physician, No Primary Referring Unava ilable Care Physician, No Primary Primary Care Unava ilable Julee Blanc Attending Unavailable Mohini Arias Attending Unavailabl e Care Physician, No Primary Primary Care Unava ilable Mohini Arias Attending Unavailabl e Care Physician, No Primary Primary Care Unava ilable Care Physician, No Primary Referring Unava ilable Sarah Goncalves Attending Unavailable Care Physician, No Primary Primary Care Unava ilable MOHINI MAJANO Primary Care Unavailab HANNA Pacheco Attending Unavailable MARISELA RODRIGUEZ E Referring Unavailabl e Allergies Allergy Classification Reported Allergen(s) Allergy Type Date of Onset Reaction(s) Facility (13 sources) amoxicillin; Translations: [AMOXICILLIN] Drug Allergy 5 [facility] Repository (13 sources) clarithromycin; Translations: [CLARITHROMYCIN] Drug Allergy 5 [facility] Repository (1 source) OTHER; Translations: [OTHER] Propensity to adverse reactions (disorder) 9 [facility] Repository (1 source) FLAVORING AGENT; Translations: [FLAVORING AGENT] Propensity to adverse reactions to drug (disorder) 5 [facility] Repository Medications Current Medications Medication Drug Class(es) Dates Sig (Normalized) Sig (Original) Multivit 34-Mnxs-Uqnevj 1-Dha (Pnv-Dha) 27 mg iron-1 mg -300 mg capsule (9 sources) Start: 03-10-2023 Multivit 65-Hnhe-Qhhqhe 1-Dha (Pnv-Dha) 27 mg iron-1 mg -300 mg capsule Active 1 NMA PO DAILY March 10, 2023 12:00am Complies with drug therapy Start: 03-10-2023 Multivit 47-Ir on-Folate 1-Dha (Pnv-Dha) 27 mg iron-1 mg -300 mg capsule Active 1 NMA PO DAILY March 10, 2023 12:00am Start: 03-10-2023 Multivit 47-Ir on-Folate 1-Dha (Pnv-Dha) 27 mg iron-1 mg -300 mg capsule Active CAP PO March 09, 2023 11:00pm Start: 03-10-2023 Multivit 47-Ir on-Folate 1-Dha (Pnv-Dha) 27 mg iron-1 mg -300 mg capsule Active CAP PO March 10, 2023 12:00am Completed/Discontinued Medications Medication Drug Class(es) Dates Sig (Normalized) Sig (Original) norethindrone 0.35 mg oral tablet (5 sources) Start: 11-16-2023 End: 12-14-2024 take 1 tablet by mouth once daily Norethindrone (Contraceptive) 0.35 mg tablet Discontinued 0.35 mg PO DAILY 84 4 November 16, 2023 12:00am December 14, 2024 10:54am Problems Problem Classification Problem Date Documented Date Episodic/Chronic Contraceptive and procreative management (20 sources) Patient encounter status; Translations: [Encounter for other general counseling and advice on procreation] 09-13-2022 Episodic Other complications of ; puerperium affecting management of mother (15 sources) Abnormality of heart; Translations: [ ventricular septal defect affecting antepartum care of mother] 05-19-2023 Episodic Comment on above: [place] [facility] OK to aakash sheppard here-has Prominent coronary sinus, persistent Left SVC and VSD - being referred to [facility] heart center per last report at 22 week scan. patient requesting repeat discussion with peds after 32 week echo due to peds cardio and MFM encouragement.-final plan for decision to deliver in [place] will be made during ultrasound follow up in July. However, [facility] still may not feel comfortable and will need to conference with them before deciding ok to deliver here- Dr. Sterling approved delivery in mobile-asking mfm if they recommend NSts - nothing in their notes as of 35 weeks. 09/07 MFM states no nst/bpp required.Stable and doing well pp Other complications of (20 sources) RhD negative; Translations: [Other specified related conditions, unspecified trimester] 04-05-2023 Episodic Comment on above: A- ( is RH po sitive); Rhogam @ 28wks & PRN rhogam at 28 week an d PRN. discussed checking husbands blood type and if rh negative, will not give rhogam, will check fetus after delivery. Indra is rh positive, will give rhogam. Other complications of (11 sources) Other specified related conditions, unspecified trimester; Translations: [Other specified complications of , antepartum condition or complication] Onset: 01-17-2025 05-02-2023 Episodic Other complications of (16 sources) Abnormal findings on screening of mother; Translations: [Abnormal chromosomal and genetic finding on screening of mother] 07-29-2023 Episodic Comment on above: carrier for CF, AR p olycystic kidney disease, 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 NIPT low risk. Other complications of (7 sources) Abnormal chromosomal and genetic finding on screening of mother; Translations: [Abnormal finding on screening] Onset: 03-14-2025 06-28-2023 Episodic Other complications of (15 sources) High risk ; Translations: [Supervision of high risk , unspecified, unspecified trimester] 12-14-2024 Episodic Comment on above: , [facility] 08/02/25, PC: Jerri, : Indra Other complications of (5 sources) Abnormal amniotic fluid; Translations: [Other abnormal findings on screening of mother] 10-05-2023 Episodic Comment on above: on 09/26 was 6.8 cm in office, reviewed kick counts and plan repeat in 1 week either in office or WCHrpt was 9.3 on 10/03/23 Other complications of (15 sources) Hereditary disease in family possibly affecting fetus; Translations: [Maternal care for (suspected) hereditary disease in fetus, not applicable or unspecified] 12-14-2024 Episodic Comment on above: Daughter with VSD an d persistent Left SVC Daughter with VSD an d persistent Left SVC, echo recommended at 22-24 weeks. Other complications of (1 source) Supervision of high risk , unspecified, second trimester; Translations: [Supervision of high risk , unspecified, second trimester] Onset: 03-14-2025 Episodic Other complications of (1 source) Maternal care for (suspected) hereditary disease in fetus, not applicable or unspecified; Translations: [Maternal care for (suspected) hereditary disease in fetus, not applicable or unspecified] Onset: 03-14-2025 Episodic Other complications of (1 source) Other specified related conditions, second trimester; Translations: [Other specified related conditions, second trimester] Onset: 03-14-2025 Episodic Other complications of (1 source) Supervision of high risk , unspecified, unspecified trimester; Translations: [Supervision of high risk , unspecified, unspecified trimester] Onset: 01-17-2025 Episodic Other and delivery including normal (20 sources) Normal ; Translations: [Encounter for supervision of normal , unspecified, unspecified trimester] Onset: 02-07-2025 03-10-2023 Episodic Comment on above: KW 39.1 girl Jerri PRR, [place] 10/10/23 Spouse Indra Discuss genetic/lima ier testing - prior carrier done, undecided carrier and NIPT rev iewed. afp declined. anatomy reviewed. Discuss genetic/lima ier testing - prior carrier done, undecided. NIPT low risk. Residual codes; unclassified (1 source) 18 weeks gestation of ; Translations: [18 weeks gestation of ] Onset: 03-14-2025 Episodic Residual codes; unclassified (1 source) Unspecified blood type, Rh negative; Translations: [Unspecified blood type, Rh negative] Onset: 03-14-2025 Episodic Residual codes; unclassified (1 source) 10 weeks gestation of ; Translations: [10 weeks gestation of ] Onset: 01-17-2025 Episodic Results Test Name Value Interpretation Reference Range Facility [facility] Office Visit Reporton 03-14-2025 [facility] Office Visit Report [facility] [address], [address] [place] [address] OFFICE VISIT Date of Service: 03/14/25 MR#: [id number] Acct: [id number] Name: YRN DELAROSA Rep #: [id number] : 1995 Provider: Dr. Mohini Fischer DO Age/Sex: 29/F [place] [facility] [place]: Signed Intake Vital Signs 01/17/25 15:28 02/13/25 16:05 03/14/25 15:28 Height 5 ft 7 in 5 ft 7 in 5 ft 7 in Weight: 140 lb 6 oz BMI 21.9 BP 111/68 Intake Visit Reasons: 18wk5d ob Manager Placement Required: No Is patient in pain?: No Allergies amoxicillin Allergy (Mild, Verified 03/14/25 15:29) Hives clarithromycin (From Biaxin) Allergy (Mild, Verified 03/14/25 15:29) Hives Medications ???Medication ???Instructions ???Recorded ???Confirmed ???Type multivitamin no.47-iron fum 27 1 cap PO DAILY 03/10/23 03/14/25 History mg-folate no.1 1 mg-dha 300 mg capsule (PNV-DHA) Last Menstrual Period: 10/26/24 : No PFSH PFSH Medical History Abnormal genetic test during Abnormal Pap smear of cervix Surgical History H/O wisdom tooth extraction Family History Grandmother Breast cancer, Onset Age: 60 Social History adopted: No household members: spouse and children housing: apartment number of children: 1 current occupational status: employed 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; 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 occupational exposures/hazards: No pets and animals: No history of recent travel: Yes ( - October 2024) out of state: Yes out of country: No sexually active: Yes Smoking Status: Never smoker second hand exposure: No alcohol intake: current alcohol intake frequency: holidays/special occasions only details: Not while substance use type: does not use well-balanced diet: daily or most days caffeine: Yes Type: coffee Number of servings: 1 eating out: rarely or never during the past year weight has: remained stable what type of physical activity do you participate in: running and weight training frequency: 5-6 times per week duration: 30-45 minutes/day osbaldo/protestant: Amish seatbelt use: always do you feel safe at home: Yes additional social history: : 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 Date Name GA/Weeks Outcome Route Bth Weight Infant Gen Labor Lgth Anesthesia Del Locatn Provider FOB 10/04/23 Jerri 39 live - full term 6lbs 10oz Female none [facility] Rom[facility] Delivery Date: 10/04/23 Last Updated by: Sarah Goncalves, RN see problem list for complications, and KW 39.1 SROM girl HPI 18wk5d ob Details: YRN DELAROSA is a 29 year old who presents for routine OB visit. OB Visit [facility] Calculator Estimated Delivery Date Method Current WG Current Estimate 08/10/25 Ultrasound #1 18w 5d Other Estimates 08/02/25 LMP (Certain) 19w 6d Expected Delivery Route/Plan Labor Preferences- CB/BF classes: [] labor support person: [] labor intervention preferences: [] pain management options preferred: [] cut cord/dad catch: [] : [] PP control planned: [] discussed possible routes of delivery and associated risks: [] special requests: [] Specific Issue/Plans Covid status: [] Flu vaccine: [] Tdap vaccine: [] Rhogam: [] LARC form signed: [] Problem list reviewed and updated with the most current plan of care details and appropriate orders placed. Relevant counseling for the gestational age provided. Continue routine care and follow up unless otherwise noted in visit notes/problem list details Initial Weight: 127 lb Date -???-???-???-???-???-??? -???-???-???-???-???-??? - EGA Weight BP Urine Prot -???-???-???-???-???-??? -???-???-???-???-???-??? - Glucose FHR FuHt Pres Dilation -???-???-???-???-???-??? -???-???-???-???-???-??? - Effaced St Visit Note 12/19/24 -???-???-???-???-???-??? -???-???-???-???-???-??? - 6w 4d 127 lb 4 oz (+4 oz) 103/68 -???-???-???-???-???-??? -???-???-???-???-???-??? - 144 -???-???-???-???-???-??? -???-???-???-???-???-??? - JV- CRL off by a week from LMP but she only had one cycle since her last . [place] 08/10/25. undecided about NIPT. 01/17/25 -???-???-???-???-???-??? -???-???-???-???-???-??? - 10w 5d 130 lb 1 oz (+3 lb 1 oz) 117/70 -???-???-???-???-???-??? -???-???-???-???-???-??? - 158 (more content not included)... Normal [facility] - Chemistry and C hemistry - challengeOrdered By: Marisela Rodriguez on 02-13-2025 Glucose Ql (U) Negative [facility] - UrinalysisOrder ed By: Marisela Rodriguez on 02-13-2025 Protein Ql (U) Negative [facility] Bread D[facility] Office Visit Reporton 02-13-2025 Bread Dumper Office Visit Report [facility] [place] [address], [address] [place] [address] OFFICE VISIT Date of Service: 02/13/25 MR#: [id number] Acct: [id number] Name: YRN DELAROSA Rep #: [id number] : 1995 Provider: NILAY guy Age/Sex: 29/F [place] [facility] [place]: Signed Intake Vital Signs 11/16/23 08:30 01/17/25 15:28 02/13/25 16:05 Height 5 ft 7 in 5 ft 7 in 5 ft 7 in Weight: 137 lb 6 oz BMI 21.5 BP 110/71 Intake Visit Reasons: 15wk OB Chief Complaint: 15wk OB Manager Placement Required: No Is patient in pain?: No Allergies amoxicillin Allergy (Mild, Verified 02/13/25 16:04) Hives clarithromycin (From Biaxin) Allergy (Mild, Verified 02/13/25 16:04) Hives Medications ???Medication ???Instructions ???Recorded ???Confirmed ???Type multivitamin no.47-iron fum 27 1 cap PO DAILY 03/10/23 02/13/25 History mg-folate no.1 1 mg-dha 300 mg capsule (PNV-DHA) Last Menstrual Period: 10/26/24 : No PFSH PFSH Medical History Abnormal genetic test during Abnormal Pap smear of cervix Surgical History H/O wisdom tooth extraction Family History Grandmother Breast cancer, Onset Age: 60 Social History adopted: No household members: spouse and children housing: apartment number of children: 1 current occupational status: employed 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; 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 occupational exposures/hazards: No pets and animals: No history of recent travel: Yes ( - October 2024) out of state: Yes out of country: No sexually active: Yes Smoking Status: Never smoker second hand exposure: No alcohol intake: current alcohol intake frequency: holidays/special occasions only details: Not while substance use type: does not use well-balanced diet: daily or most days caffeine: Yes Type: coffee Number of servings: 1 eating out: rarely or never during the past year weight has: remained stable what type of physical activity do you participate in: running and weight training frequency: 5-6 times per week duration: 30-45 minutes/day osbaldo/protestant: Amish seatbelt use: always do you feel safe at home: Yes additional social history: : 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 Date Name GA/Weeks Outcome Route Bth Weight Gen Labor Lgth Anesthesia Del Locatn Provider FOB 10/04/23 Jerri 39 live - full term 6lbs 10oz Female none [facility] Delivery Date: 10/04/23 Last Updated by: Sarah Goncalves RN see problem list for complications, and KW 39.1 SROM girl HPI 15wk OB Details: YRN DELAROSA is a 29 year old who presents for routine OB visit. OB Visit [facility] Calculator Estimated Delivery Date Method Current WG Current Estimate 08/10/25 Ultrasound #1 14w 4d Other Estimates 08/02/25 LMP (Certain) 15w 5d Expected Delivery Route/Plan Labor Preferences- CB/BF classes: [] labor support person: [] labor intervention preferences: [] pain management options preferred: [] cut cord/dad catch: [] : [] PP control planned: [] discussed possible routes of delivery and associated risks: [] special requests: [] Specific Issue/Plans Covid status: [] Flu vaccine: [] Tdap vaccine: [] Rhogam: [] LARC form signed: [] Problem list reviewed and updated with the most current plan of care details and appropriate orders placed. Relevant counseling for the gestational age provided. Continue routine care and follow up unless otherwise noted in visit notes/problem list details Initial Weight: Not Recorded Date -???-???-???-???-???-??? -???-???-???-???-???-??? - EGA Weight BP Urine Prot -???-???-???-???-???-??? -???-???-???-???-???-??? - Glucose FHR FuHt Pres Dilation -???-???-???-???-???-??? -???-???-???-???-???-??? - Effaced St Visit Note 12/19/24 -???-???-???-???-???-??? -???-???-???-???-???-??? - 6w 4d 127 lb 4 oz 103/68 -???-???-???-???-???-??? -???-???-???-???-???-??? - 144 -???-???-???-???-???-??? -???-???-???-???-???-??? - JV- CRL off by a week from LMP but she only had one cycle since her last . [place] 08/10/25. undecided about NIPT. 01/17/25 -???-???-???-???-???-??? -???-???-???-???-???-??? - 10w 5d 130 lb 1 oz 117/70 -???-???-???-???-???-??? -???-???-???-???-???-??? - 158 -???-???-???-???-???-? (more content not included)... Normal [facility] Absolute lymphocyte countOrd ered By: Mohini Grimaldo on 01-24-2025 Lymphocytes Auto (Unsp spec) [#/Vol] 2.44 10*3/uL 0.83-4.51 [facility] Absolute neutrophil countOrd ered By: Mohini Grimaldo on 01-24-2025 Neutrophils (Bld) [#/Vol] 3.7 10*3/uL 2.0-7.7 [facility] Automated lymphocyte count a s percentage of total leukocytesOrdered By: Mohini Grimaldo on 01-24-2025 Lymphocytes/100 WBC Auto (Unsp spec) 35.2 % 19-41 [facility] Basophil percentageOrdered B y: Mohini Grimaldo on 01-24-2025 Basophils/100 WBC (Bld) 0.7 % 0-1 [facility] CBC W/Diff, Automatedon Absolute Lymph 2.44 X10 3/uL Normal 0.83-4.51 [facility] Comment on above: Performed By: #### L 509.8002, L100.0100, L509.4006, L3890.6301, L3890.6006, L3890.6102, BTS #### [facility] [address] [place], [address] Absolute Neut 3.7 X10 3/uL Normal 2.0-7.7 [facility] Comment on above: Performed By: #### L 509.8002, L100.0100, L509.4006, L3890.6301, L3890.6006, L3890.6102, BTS #### [facility] [address] [place], [address] Basophils/100 WBC (Bld) 0.7 % Normal 0-1 [facility] Comment on above: Performed By: #### L 509.8002, L100.0100, L509.4006, L3890.6301, L3890.6006, L3890.6102, BTS #### [facility] [address] [place], [address] Eosinophils/100 WBC (Bld) 2.9 % Normal 0-5 [facility] Comment on above: Performed By: #### L 509.8002, L100.0100, L509.4006, L3890.6301, L3890.6006, L3890.6102, BTS #### [facility] [address] [place], [address] Erythrocyte distribution width (RBC) [Ratio] 13.2 % Normal 11.6-14.6 [facility] Comment on above: Performed By: #### L 509.8002, L100.0100, L509.4006, L3890.6301, L3890.6006, L3890.6102, BTS #### [facility] [address] [place], [address] Hematocrit (Bld) [Volume fraction] 39.0 % Normal 37-47 [facility] Comment on above: Performed By: #### L 509.8002, L100.0100, L509.4006, L3890.6301, L3890.6006, L3890.6102, BTS #### [facility] [address] [place], [address] Hemoglobin (Bld) [Mass/Vol] 13.5 g/dL Normal 12.0-15.0 [facility] Comment on above: Performed By: #### L 509.8002, L100.0100, L509.4006, L3890.6301, L3890.6006, L3890.6102, BTS #### [facility] [address] [place], [address] IG% 0.600 Normal 0.0-0.9 [facility] Comment on above: Result Comment: IG% - Immature Granulocytes (promyelocytes, myelocytes and metamyelocytes) > 1% indicates that a LEFT SHIFT is Present. Performed By: #### L 509.8002, L100.0100, L509.4006, L3890.6301, L3890.6006, L3890.6102, BTS #### [facility] [address] [place], [address] Lymphocytes/100 WBC (Bld) 35.2 % Normal 19-41 [facility] Comment on above: Performed By: #### L 509.8002, L100.0100, L509.4006, L3890.6301, L3890.6006, L3890.6102, BTS #### [facility] [address] [place], [address] MCH (RBC) [Entitic mass] 29.7 pg Normal 27.0-32.0 [facility] Comment on above: Performed By: #### L 509.8002, L100.0100, L509.4006, L3890.6301, L3890.6006, L3890.6102, BTS #### [facility] [address] [place], [address] MCHC (RBC) [Mass/Vol] 34.6 g/dL Normal 32-36 [facility] Comment on above: Performed By: #### L 509.8002, L100.0100, L509.4006, L3890.6301, L3890.6006, L3890.6102, BTS #### [facility] [address] [place], [address] MCV (RBC) [Entitic vol] 85.9 fL Normal 81-99 [facility] Comment on above: Performed By: #### L 509.8002, L100.0100, L509.4006, L3890.6301, L3890.6006, L3890.6102, BTS #### [facility] [address] [place], [address] Monocytes/100 WBC (Bld) 6.9 % Normal 0-10 [facility] Comment on above: Performed By: #### L 509.8002, L100.0100, L509.4006, L3890.6301, L3890.6006, L3890.6102, BTS #### [facility] [address] [place], [address] Neutrophils/100 WBC (Bld) 53.7 % Normal 47-70 [facility] Comment on above: Performed By: #### L 509.8002, L100.0100, L509.4006, L3890.6301, L3890.6006, L3890.6102, BTS #### [facility] [address] [place], [address] Nucleated RBC (Bld) [#/Vol] 0 10*3/uL Normal 0-5 [facility] Comment on above: Performed By: #### L 509.8002, L100.0100, L509.4006, L3890.6301, L3890.6006, L3890.6102, BTS #### [facility] [address] [place], [address] Platelet mean volume (Bld) [Entitic vol] 10.1 fL Normal 6.2-12.0 [facility] Comment on above: Performed By: #### L 509.8002, L100.0100, L509.4006, L3890.6301, L3890.6006, L3890.6102, BTS #### [facility] [address] [place], [address] Platelets (Bld) [#/Vol] 259 10*3/uL Normal 150-450 [facility] Comment on above: Performed By: #### L 509.8002, L100.0100, L509.4006, L3890.6301, L3890.6006, L3890.6102, BTS #### [facility] [address] [place], [address] RBC (Bld) [#/Vol] 4.54 10*6/uL Normal 4.2-5.4 [facility] Comment on above: Performed By: #### L 509.8002, L100.0100, L509.4006, L3890.6301, L3890.6006, L3890.6102, BTS #### [facility] [address] [place], [address] RDW SD 41.2 fl Normal 35.1-43.9 [facility] Comment on above: Performed By: #### L 509.8002, L100.0100, L509.4006, L3890.6301, L3890.6006, L3890.6102, BTS #### [facility] [address] [place], [address] WBC (Bld) [#/Vol] 6.9 10*3/uL Normal 4.4-11.0 [facility] Comment on above: Performed By: #### L 509.8002, L100.0100, L509.4006, L3890.6301, L3890.6006, L3890.6102, BTS #### [facility] [address] [place], [address] Eosinophil percentageOrdered By: Mohini Grimaldo on 01-24-2025 Eosinophils/100 WBC (Bld) 2.9 % 0-5 [facility] Erythrocyte distribution wid th ratioOrdered By: Mohini Grimaldo on 01-24-2025 Erythrocyte distribution width (RBC) [Ratio] 13.2 % 11.6-14.6 [facility] Erythrocyte distribution wid th standard deviationOrdered By: Mohini Grimaldo on 01-24-2025 Erythrocyte distribution width (RBC) [Ratio] 41.2 fl 35.1-43.9 [facility] HIVon 01-24-2025 HIV Non-Reactive Normal Nonreactive [facility] Comment on above: Result Comment: Non- Reactive Reactive Repeatedly reactive samples must be confirmed according to CDC recommended confirmatory algorithms. The subresults for either HIVAG or AHIV can be used as an aid in the selection of the confirmation algorithm for reactive samples. Send out specimens with Reactive results to [facility] for confirmation. Order the HIV antibody detection and differentiation: lc#[id number] Performed By: #### L 509.8002, L100.0100, L509.4006, L3890.6301, L3890.6006, L3890.6102, BTS ####[facility] [address] [place], [place], [id number] Hematocrit Auto (Bld) [Volum e fraction]Ordered By: Mohini Grimaldo on 01-24-2025 Hematocrit (Bld) [Volume fraction] 39.0 % 37-47 [facility] Hemoglobin measurementOrdere d By: Mohini Grimaldo on 01-24-2025 Hemoglobin (Bld) [Mass/Vol] 13.5 g/dL 12.0-15.0 [facility] Hepatitis C Antibodyon 01-24 Hepatitis C Ab Non-Reactive Normal Nonreactive [facility] Comment on above: Result Comment: Reac tive: Presumptive evidence of antibodies to HCV. Follow CDC recommendations for supplemental testing. Non-Reactive: Antibodies to HCV were not detected; does not exclude the possibility of exposure to HCV Reactive Results are presumptive evidence of antibodies to HCV. Follow CDC recommendations for supplemental testing. Order confirmation testing: HCV Quant by PCR testing - HCVPCR #[id number] Non Reactive: < 0.8 Equivocal: >/= 0.8 to < 1.0 Reactive: >/= 1.0 The CDC requires that a reactive/equivocal HCV antibody result be sent out for confirmation. HCV Quant by PCR testing. Performed By: #### L 509.8002, L100.0100, L509.4006, L3890.6301, L3890.6006, L3890.6102, BTS ####[facility] [address] [place], [place], [id number] Immature granulocytes/100 WB C Auto (Bld)Ordered By: Mohini Grimaldo on 01-24-2025 Immature granulocytes/100 WBC (Bld) 0.600 % 0.0-0.9 [facility] Comment on above: IG% - Immature Granu locytes (promyelocytes, myelocytes and metamyelocytes) > 1% indicates that a LEFT SHIFT is Present. L3890.6102on 01-24-2025 HEP B Surf Ag Non-Reactive Normal Nonreactive [facility] Comment on above: Result Comment: Reac tive: Presumptive evidence of HBV. Repeatedly reactive samples must be confirmed using a neutralization test ([employer] HBsAg Confirmatory Test) Non-Reactive: HBsAg not detected; does not exclude the possibility of exposure to HBV Performed By: #### L 509.8002, L100.0100, L509.4006, L3890.6301, L3890.6006, L3890.6102, BTS ####[facility] [address] [facility] [place], [place], [id number] L509.4006on 01-24-2025 Rubella IgG REAC Normal Nonreactive [facility] Comment on above: Result Comment: Anti body Result: Interpretation Non-Reactive: Non-Immune Reactive: Immune The following results were obtained with the [employer] Rubella IgG assay. Results from assays of other manufacturers cannot be used interchangeably. Performed By: #### L 509.8002, L100.0100, L509.4006, L3890.6301, L3890.6006, L3890.6102, BTS #### [facility] [address] [place], [place], [id number] Laboratory - Microbiology an d Antimicrobial susceptibilityOrdered By: Mohini Grimaldo on 01-24-2025 HBV surface Ag Ql (S) Non-Reactive Nonreactive [facility] Comment on above: Reactive: Presumptiv e evidence of HBV. Repeatedly reactive samples must be confirmed using a neutralization test ([employer] HBsAg Confirmatory Test)Non-Reactive: HBsAg not detected; does not exclude the possibility of exposure to HBV MCV (mean corpuscular volume ) determinationOrdered By: Mohini Grimaldo on 01-24-2025 MCV (RBC) [Entitic vol] 85.9 fL 81-99 [facility] Mean corpuscular hemoglobin (MCH) determinationOrdered By: Mohini Grimaldo on 01-24-2025 MCH (RBC) [Entitic mass] 29.7 pg 27.0-32.0 [facility] Mean corpuscular hemoglobin concentration (MCHC) determinationOrdered By: Mohini Grimaldo on 01-24-2025 MCHC (RBC) [Mass/Vol] 34.6 g/dL 32-36 [facility] Mean platelet volume determi nationOrdered By: Mohini Grimaldo on 01-24-2025 Platelet mean volume (Bld) [Entitic vol] 10.1 fL 6.2-12.0 [facility] Monocyte percentageOrdered B y: Mohini Grimaldo on 01-24-2025 Monocytes/100 WBC (Bld) 6.9 % 0-10 [facility] NATERAon 01-24-2025 NATURA SEE SCANNED REPORT Normal [facility] Comment on above: Performed By: #### L 900.0098 #### [facility] [address] [place] [address]. [place], [address] Neutrophil percentageOrdered By: Mohini Grimaldo on 01-24-2025 Neutrophils/100 WBC (Bld) 53.7 % 47-70 [facility] No Panel InformationOrdered By: Mohini Grimaldo on 01-24-2025 HIV (1&2) Antibody Non-Reactive Nonreactive [facility] Comment on above: Non-ReactiveReactive Repeatedly reactive samples must be confirmed according to CDC recommended confirmatory algorithms. The subresults for either HIVAG or AHIV can be used as an aid in the selection of the confirmation algorithm for reactive samples.Send out specimens with Reactive results to [facility] for confirmation.Order the HIV antibody detection and differentiation: lc#[id number] Nucleated red blood cell per centageOrdered By: Mohini Grimaldo on 01-24-2025 Nucleated RBC/100 WBC (Bld) [Ratio] 0 % 0-5 [facility] Platelet countOrdered By: Baldo Grimaldo on 01-24-2025 Platelets (Bld) [#/Vol] 259 10*3/uL 150-450 [facility] RBC Auto (Bld) [#/Vol]Ordere d By: Mohini Grimaldo on 01-24-2025 RBC (Bld) [#/Vol] 4.54 10*6/uL 4.2-5.4 [facility] Syphilis Antibodieson 2024 Syphilis Abs Non-Reactive Normal Nonreactive [facility] Comment on above: Performed By: #### L 509.8002, L100.0100, L509.4006, L3890.6301, L3890.6006, L3890.6102, BTS #### [facility] [address] [place], [place], [address] Type AND Screenon 01-24-2025 Ab SCREEN GEL Negative Normal [facility] Comment on above: Order Comment: PN Performed By: #### L 509.8002, L100.0100, L509.4006, L3890.6301, L3890.6006, L3890.6102, BTS #### [facility] [address] [place], [place], [address] White blood cell (WBC) count Ordered By: Mohini Grimaldo on 01-24-2025 WBC (Bld) [#/Vol] 6.9 10*3/uL 4.4-11.0 [facility] Bread Dumper Office Visit Reporton 01-17-2025 Bread Dumper Office Visit Report [facility] [address], [address] [place] [address] OFFICE VISIT Date of Service: 01/17/25 MR#: [id number] Acct: [id number] Name: YRN DELAROSA Rep #: [id number] : 1995 Provider: Dr. Marisela garner MD Age/Sex: 29/F [place] [facility] [place]: Signed Intake Vital Signs 11/16/23 08:30 12/19/24 09:44 01/17/25 15:28 Height 5 ft 7 in 5 ft 7 in 5 ft 7 in Weight: 130 lb 1 oz BMI 20.3 BP 117/70 Intake Visit Reasons: 10wk ob Manager Placement Required: No Is patient in pain?: No Allergies amoxicillin Allergy (Mild, Verified 01/17/25 15:30) Hives clarithromycin (From Biaxin) Allergy (Mild, Verified 01/17/25 15:30) Hives Medications ???Medication ???Instructions ???Recorded ???Confirmed ???Type multivitamin no.47-iron fum 27 1 cap PO DAILY 03/10/23 01/17/25 History mg-folate no.1 1 mg-dha 300 mg capsule (PNV-DHA) Last Menstrual Period: 10/26/24 Zika: Zika virus screening: Negative : No PFSH PFSH Medical History Abnormal genetic test during Abnormal Pap smear of cervix Surgical History H/O wisdom tooth extraction Family History Grandmother Breast cancer, Onset Age: 60 Social History adopted: No household members: spouse and children housing: apartment number of children: 1 current occupational status: employed 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; 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 occupational exposures/hazards: No pets and animals: No history of recent travel: Yes ( - October 2024) out of state: Yes out of country: No sexually active: Yes Smoking Status: Never smoker second hand exposure: No alcohol intake: current alcohol intake frequency: holidays/special occasions only details: Not while substance use type: does not use well-balanced diet: daily or most days caffeine: Yes Type: coffee Number of servings: 1 eating out: rarely or never during the past year weight has: remained stable what type of physical activity do you participate in: running and weight training frequency: 5-6 times per week duration: 30-45 minutes/day osbaldo/protestant: Amish seatbelt use: always do you feel safe at home: Yes additional social history: : [employer]ra [employer] at [employer] History 2 Elective abortions 0 Hx Para 1 Spontaneous abortions 0 Hx # Term Pregnancies 1 Ectopic pregnancies Hx # Pregnancies Multiple births # of living children 1 Past Pregnancies Del. Date Name GA/Weeks Outcome Route Bth Weight Gen Labor Lgth Anesthesia Del Locatn Provider FOB 10/04/23 Jerri 39 live - full term 6lbs 10oz Female none [facility] KW Indra Delivery Date: 10/04/23 Last Updated by: Sarah Goncalves, RN see problem list for complications, and KW 39.1 SROM girl HPI 10wk ob Details: YRN DELAROSA is a 29 year old who presents for routine OB visit. OB Visit MARQUIS Calculator Estimated Delivery Date Method Current WG Current Estimate 08/10/25 Ultrasound #1 10w 5d Other Estimates 08/02/25 LMP (Certain) 11w 6d Expected Delivery Route/Plan Labor Preferences- CB/BF classes: [] labor support person: [] labor intervention preferences: [] pain management options preferred: [] cut cord/dad catch: [] : [] PP control planned: [] discussed possible routes of delivery and associated risks: [] special requests: [] Specific Issue/Plans Covid status: [] Flu vaccine: [] Tdap vaccine: [] Rhogam: [] LARC form signed: [] Problem list reviewed and updated with the most current plan of care details and appropriate orders placed. Relevant counseling for the gestational age provided. Continue routine care and follow up unless otherwise noted in visit notes/problem list details Initial Weight: Not Recorded Date -???-???-???-???-???-??? -???-???-???-???-???-??? - EGA Weight BP Urine Prot -???-???-???-???-???-??? -???-???-???-???-???-??? - Glucose FHR FuHt Pres Dilation -???-???-???-???-???-??? -???-???-???-???-???-??? - Effaced St Visit Note 12/19/24 -???-???-???-???-???-??? -???-???-???-???-???-??? - 6w 4d 127 lb 4 oz 103/68 -???-???-???-???-???-??? -???-???-???-???-???-??? - 144 -???-???-???-???-???-??? -???-???-???-???-???-??? - JV- CRL off by a week from LMP but she only had one cycle since her last . New marquis 08/10/25. undecided about NIPT. 01/17/25 -???-???-???-???-???-??? -???-???-???-???-???-??? - 10w 5d 130 lb 1 oz 117/70 -???-???-???-???-???-??? -???-???-???-???-???-??? - (more content not included)... Normal [facility] Chlamydia/GC LULU aptimaon CHLAMY,NUC ACID Negative Normal Negative [facility] Comment on above: Performed By: #### M 100.2200, L7000.1800 #### [facility] [address] [place], [place], [id number] GC BY NUC ACID Negative Normal Negative [facility] Comment on above: Result Comment: Perf ormed at: =G - [facility] [address] [place] [id number] Woodworker: Emily Lopez MD, Phone: [phone] Performed By: #### M 100.2200, L7000.1800 #### [facility] [address] [place], [place], [id number] Urine Cultureon 12-20-2024 URC Culture exhibits no growth. Normal [facility] Comment on above: Performed By: #### M 100.2200, L7000.1800 #### [facility] [address] [place], [address] Chlamydia trachomatis rRNA d etection by probe and target amplification methodOrdered By: Mohini Grimaldo on 12-19-2024 C. trachomatis rRNA LULU+probe Ql (Unsp spec) Negative Negative [facility] Neisseria gonorrhoeae nuclei c acid detection by amplified probe techniqueOrdered By: Mohini Grimaldo on 12-19-2024 N. gonorrhoeae DNA LULU+probe Ql (Unsp spec) Negative Negative [facility] Comment on above: Performed at: =[address] [id number] Director: Emily Lopez MD, Phone: [phone] Bread D[facility] Office Visit Reporton 12-19-2024 Bread Dumper Office Visit Report [facility] [address], [address] [place] [address] OFFICE VISIT Date of Service: 12/19/24 MR#: [id number] Acct: [id number] Name: YRN DELAROSA Rep #: [id number] : 1995 Provider: Dr. Mohini Fischer DO Age/Sex: 29/F [place] [facility] [place]: Signed Intake Vital Signs 11/16/23 08:30 12/19/24 09:44 Height 5 ft 7 in 5 ft 7 in Weight: 127 lb 4 oz BMI 19.9 BP 103/68 Intake Visit Reasons: *EST* NOB LMP 10/26, MARQUIS 08/02 Manager Placement Required: No Is patient in pain?: No Allergies amoxicillin Allergy (Mild, Verified 12/19/24 09:42) Hives clarithromycin (From Biaxin) Allergy (Mild, Verified 12/19/24 09:42) Hives Medications ???Medication ???Instructions ???Recorded ???Confirmed ???Type multivitamin no.47-iron fum 27 1 cap PO DAILY 03/10/23 12/19/24 History mg-folate no.1 1 mg-dha 300 mg capsule (PNV-DHA) Last Menstrual Period: 10/26/24 Zika: Zika virus screening: Negative : Yes PFSH PFSH Medical History Abnormal genetic test during Abnormal Pap smear of cervix Surgical History H/O wisdom tooth extraction Family History Grandmother Breast cancer, Onset Age: 60 Social History adopted: No household members: spouse and children housing: apartment number of children: 1 current occupational status: employed 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; 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 occupational exposures/hazards: No pets and animals: No history of recent travel: Yes ( - October 2024) out of state: Yes out of country: No sexually active: Yes Smoking Status: Never smoker second hand exposure: No alcohol intake: current alcohol intake frequency: holidays/special occasions only details: Not while substance use type: does not use well-balanced diet: daily or most days caffeine: Yes Type: coffee Number of servings: 1 eating out: rarely or never during the past year weight has: remained stable what type of physical activity do you participate in: running and weight training frequency: 5-6 times per week duration: 30-45 minutes/day osbaldo/protestant: Amish seatbelt use: always do you feel safe at home: Yes additional social history: : 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 Date Name GA/Weeks Outcome Route Bth Weight Infant Gen Labor Lgth Anesthesia Del Locatn Provider FOB 10/04/23 Jerri 39 live - full term 6lbs 10oz Female none [facility] Romero Delivery Date: 10/04/23 Last Updated by: Sarah Goncalves, RN see problem list for complications, and KW 39.1 SROM girl HPI *EST* NOB LMP 10/26, MARQUIS 08/02 Details: YRN DELAROSA is a 29 year old who presents for New OB visit. OB Visit MARQUIS Calculator Estimated Delivery Date Method Current WG Current Estimate 08/10/25 Ultrasound #1 6w 4d Other Estimates 08/02/25 LMP (Certain) 7w 5d Estimated Due Date: 08/02/25 Expected Delivery Route/Plan Labor Preferences- CB/BF classes: [] labor support person: [] labor intervention preferences: [] pain management options preferred: [] cut cord/dad catch: [] : [] PP control planned: [] discussed possible routes of delivery and associated risks: [] special requests: [] Specific Issue/Plans Covid status: [] Flu vaccine: [] Tdap vaccine: [] Rhogam: [] LARC form signed: [] Problem list reviewed and updated with the most current plan of care details and appropriate orders placed. Relevant counseling for the gestational age provided. Continue routine care and follow up unless otherwise noted in visit notes/problem list details Initial Weight: Not Recorded Date -???-???-???-???-???-??? -???-???-???-???-???-??? - EGA Weight BP Urine Prot -???-???-???-???-???-??? -???-???-???-???-???-??? - Glucose FHR FuHt Pres Dilation -???-???-???-???-???-??? -???-???-???-???-???-??? - Effaced St Visit Note 12/19/24 -???-???-???-???-???-??? -???-???-???-???-???-??? - 6w 4d 127 lb 4 oz 103/68 -???-???-???-???-???-??? -???-???-???-???-???-??? - 144 -???-???-???-???-???-??? -???-???-???-???-???-??? - JV- CRL off by a week from LMP but she only had one cycle since her last . [place] 08/10/25. undecided about NIPT. Menstrual History Last Menstrual Period: 10/26/24 Reported LMP: definite Normal naye (more content not included)... Normal [facility] Urine cultureOrdered By: Laina Grimaldo on 12-19-2024 Bacteria identified Cx Nom (U) Culture exhibits no growth. [facility] Laboratory - Chemistry and C hemistry - challengeon 09-14-2023 Glucose Ql (U) Negative [facility] Laboratory - Urinalysison Protein Ql (U) Negative [facility] No Panel InformationOrdered By: Mohini Grimaldo on 09-14-2023 Group B Streptococcus Culture Group B Beta Streptococcus is not isolated. [facility] Laboratory - Chemistry and C hemistry - challengeon 09-07-2023 Glucose Ql (U) Negative [facility] Laboratory - Urinalysison Protein Ql (U) Negative [facility] Laboratory - Chemistry and C hemistry - challengeon 08-25-2023 Glucose Ql (U) Negative [facility] Laboratory - Urinalysison Protein Ql (U) Negative [facility] Laboratory - Chemistry and C hemistry - challengeon 08-03-2023 Glucose Ql (U) Negative [facility] Laboratory - Urinalysison Protein Ql (U) Negative [facility] Absolute lymphocyte countOrd ered By: Mohini Grimaldo on 07-21-2023 Lymphocytes Auto (Unsp spec) [#/Vol] 0.94 10*3/uL 0.83-4.51 [facility] Automated lymphocyte count a s percentage of total leukocytesOrdered By: Mohini Grimaldo on 07-21-2023 Lymphocytes/100 WBC Auto (Unsp spec) 18.0 % 19-41 [facility] Basophil percentageOrdered B y: Mohini Grimaldo on 07-21-2023 Basophils/100 WBC (Bld) 0.6 % 0-1 [facility] Eosinophils/100 WBC (Bld) 0.6 % 0-5 [facility] Hemoglobin (Bld) [Mass/Vol] 12.3 g/dL 12.0-15.0 [facility] Monocytes/100 WBC (Bld) 4.4 % 0-10 [facility] Neutrophils (Bld) [#/Vol] 3.9 10*3/uL 2.0-7.7 [facility] Neutrophils/100 WBC (Bld) 75.2 % 47-70 [facility] WBC (Bld) [#/Vol] 5.2 10*3/uL 4.4-11.0 [facility] Determination of erythrocyte mean corpuscular volume (MCV)Ordered By: Mohini Grimaldo on 07-21-2023 MCV (RBC) [Entitic vol] 92.6 fL 81-99 [facility] Erythrocyte distribution wid th ratioOrdered By: Mohini Grimaldo on 07-21-2023 Erythrocyte distribution width (RBC) [Ratio] 14.0 % 11.6-14.6 [facility] Erythrocyte distribution wid th standard deviationOrdered By: Mohini Grimaldo on 07-21-2023 Erythrocyte distribution width (RBC) [Entitic vol] 47.8 fL 35.1-43.9 [facility] Gestational diabetes screen 1-hour screen with 50g oral glucose loadOrdered By: Mohini Grimaldo on 07-21-2023 Glucose 1 Hr post 50 g glucose PO [Mass/Vol] 86 mg/dL 70-140 [facility] HIV 1 and HIV-2 antibody ass ay with HIV-1 p24 antigen detectionOrdered By: Mohini Grimaldo on 07-21-2023 HIV 1+2 Ab+HIV1 p24 Ag IA Ql Non-Reactive Nonreactive [facility] Hematocrit Auto (Bld) [Volum e fraction]Ordered By: Mohini Grimaldo on 07-21-2023 Hematocrit (Bld) [Volume fraction] 37.3 % 37-47 [facility] Immature granulocytes/100 WB C Auto (Bld)Ordered By: Mohini Grimaldo on 07-21-2023 Immature granulocytes/100 WBC (Bld) 1.200 % 0.0-0.9 [facility] Comment on above: IG% - Immature Granu locytes (promyelocytes, myelocytes and metamyelocytes) > 1% indicates that a LEFT SHIFT is Present. Laboratory - Chemistry and C hemistry - challengeon 07-21-2023 Glucose Ql (U) Negative [facility] Laboratory - Hematology and Cell countsOrdered By: Mohini Grimaldo on 07-21-2023 MCH (RBC) [Entitic mass] 30.5 pg 27.0-32.0 [facility] MCHC (RBC) [Mass/Vol] 33.0 g/dL 32-36 [facility] Nucleated RBC/100 WBC (Bld) [Ratio] 0 % 0-5 [facility] Platelet mean volume (Bld) [Entitic vol] 11.2 fL 6.2-12.0 [facility] Platelets (Bld) [#/Vol] 184 10*3/uL 150-450 [facility] Laboratory - Urinalysison Protein Ql (U) Negative [facility] RBC Auto (Bld) [#/Vol]Ordere d By: Mohini Grimaldo on 07-21-2023 RBC (Bld) [#/Vol] 4.03 10*6/uL 4.2-5.4 [facility] Serum Treponema species anti body detectionOrdered By: Mohini Grimaldo on 07-21-2023 Treponema sp Ab Ql (S) Non-Reactive [facility] Laboratory - Chemistry and C hemistry - challengeon 06-28-2023 Glucose Ql (U) Negative [facility] Laboratory - Urinalysison Protein Ql (U) Negative [facility] No Panel InformationOrdered By: Mohini Grimaldo on 06-07-2023 Miscellaneous Test Comment MAILED SPECIMEN [facility] Laboratory - Chemistry and C hemistry - challengeon 06-03-2023 Glucose Ql (U) Negative [facility] Laboratory - Urinalysison Protein Ql (U) Negative [facility] Laboratory - Chemistry and C hemistry - challengeon 05-02-2023 Glucose Ql (U) Negative [facility] Laboratory - Urinalysison Protein Ql (U) Negative [facility] Center Absolute lymphocyte countOrd ered By: Julee Blanc on 04-04-2023 Lymphocytes Auto (Unsp spec) [#/Vol] 2.59 10*3/uL 0.83-4.51 [facility] Basophil percentageOrdered B y: Julee Blanc on 04-04-2023 Basophils/100 WBC (Bld) 0.5 % 0-1 [facility] Eosinophils/100 WBC (Bld) 2.9 % 0-5 [facility] Neutrophils (Bld) [#/Vol] 5.6 10*3/uL 2.0-7.7 [facility] Neutrophils/100 WBC (Bld) 61.4 % 47-70 [facility] WBC (Bld) [#/Vol] 9.2 10*3/uL 4.4-11.0 [facility] Blood erythrocytes count (nu mber/volume)Ordered By: Julee Blanc on 04-04-2023 RBC (Bld) [#/Vol] 4.64 10*6/uL 4.2-5.4 [facility] Blood hemoglobin measurement (mass/volume)Ordered By: Julee Blanc on 04-04-2023 Hemoglobin (Bld) [Mass/Vol] 13.3 g/dL 12.0-15.0 [facility] Blood lymphocytes/100 leukoc ytesOrdered By: Julee Blanc on 04-04-2023 Lymphocytes/100 WBC (Bld) 28.2 % 19-41 [facility] Blood monocytes/100 leukocyt esOrdered By: Julee Blanc on 04-04-2023 Monocytes/100 WBC (Bld) 6.6 % 0-10 [facility] Blood platelet mean volumeOr dered By: Julee Blanc on 04-04-2023 Platelet mean volume (Bld) [Entitic vol] 10.5 fL 6.2-12.0 [facility] Determination of erythrocyte mean corpuscular volume (MCV)Ordered By: Julee Blanc on 04-04-2023 MCV (RBC) [Entitic vol] 87.3 fL 81-99 [facility] HIV 1 and HIV-2 antibody ass ay with HIV-1 p24 antigen detectionOrdered By: Julee Blanc on 04-04-2023 HIV 1+2 Ab+HIV1 p24 Ag IA Ql Non-Reactive Nonreactive [facility] Hematocrit Auto (Bld) [Volum e fraction]Ordered By: Julee Blanc on 04-04-2023 Hematocrit (Bld) [Volume fraction] 40.5 % 37-47 [facility] Laboratory - Chemistry and C hemistry - challengeon 04-04-2023 Glucose Ql (U) Negative [facility] Laboratory - Hematology and Cell countsOrdered By: Julee Blanc on 04-04-2023 Erythrocyte distribution width (RBC) [Entitic vol] 41.7 fL 35.1-43.9 [facility] Erythrocyte distribution width (RBC) [Ratio] 13.2 % 11.6-14.6 [facility] Immature granulocytes/100 WBC (Bld) 0.400 % 0.0-0.9 [facility] Comment on above: IG% - Immature Granu locytes (promyelocytes, myelocytes and metamyelocytes) > 1% indicates that a LEFT SHIFT is Present. MCH (RBC) [Entitic mass] 28.7 pg 27.0-32.0 [facility] Nucleated RBC/100 WBC (Bld) [Ratio] 0 % 0-5 [facility] Laboratory - Urinalysison Protein Ql (U) Negative [facility] MCHC Auto (RBC) [Mass/Vol]Or dered By: Julee Blanc on 04-04-2023 MCHC (RBC) [Mass/Vol] 32.8 g/dL 32-36 [facility] No Panel InformationOrdered By: Julee Blanc on 04-04-2023 Hepatitis B Surface Antigen Non-Reactive Nonreactive [facility] Hepatitis C Antibody Non-Reactive Nonreactive [facility] Comment on above: Non Reactive: < 0.8 Equivocal: >/= 0.8 to < 1.0 Reactive: >/= 1.0The CDC recommends that a reactive/equivocal HCV antibody result be followed up by the HCV Nucleic Acid Amplificationtest (415199) Rubella IgG Antibody Reactive Nonreactive [facility] Comment on above: Antibody Results Int erpretation of Immune Status Non Reactive Presumed Non-Immune Equivocal Equivocal Reactive Presumed Immune Platelets bldOrdered By: Anibal Blanc on 04-04-2023 Platelets (Bld) [#/Vol] 249 10*3/uL 150-450 [facility] Serum Treponema species anti body detectionOrdered By: Julee Blanc on 11-13-2023 Treponema sp Ab Ql (S) Non-Reactive [facility] Chlamydia trachomatis rRNA d etection by probe and target amplification methodOrdered By: Julee Blanc on 03-10-2023 C. trachomatis rRNA LULU+probe Ql (Unsp spec) Negative Negative [facility] Culture, urineOrdered By: Miles Blanc on 03-10-2023 Bacteria identified Cx Nom (U) Presumptive Lactobacillus sp. [facility] Bacteria identified Cx Nom (U) Presumptive Lactobacillus sp. [facility] Laboratory - Microbiology an d Antimicrobial susceptibilityOrdered By: Julee Blanc on 03-10-2023 N. gonorrhoeae DNA LULU+probe Ql (Unsp spec) Negative Negative [facility] Comment on above: Performed at: =[facility] [address] [id number] Director: Emily Lopez MD, Phone: [phone] CNOVtom 01-05-2017 CNOV Office Visit (UCWSTR) YRN JARVIS ([id number]) 1995 [facility] Time Provider Department01/05/17 6:45 PM MENDY RUSHING (TRACI) WSTR During your visit today, we recorded the following information about you: Temperature Pulse Respiration Blood pressure 97.9 degrees 58/minute 16/minute 107/68 Weight 62.1 kgNaz TRACI Rushing 01/05/2017 7:18 PM SignedCC: Patient presents with:Pain, Sinus: sinus pressure(headache)/drain age x 4 weeksEarache: (both) x 4 weeksCough: cough and congestion x 4 weeksHPI:Yrn Gale is a 21 year old female who presents to the office withcomplaint of sinus symptoms for a month. Was started on Omnicef 10 days ago forear infection but has not been feeling well for about one month. Sinus symptomsworsened over the past week. Today associated symptoms includes nasalcongestion, facial pain/pressure maxillary, headache, ear pain LANDgt;R andcough- nonproductive. She denies fever, wheezing and dyspnea. Treatments triedinclude OTC cold medicine with temporary relief of symptoms.Patient denies a history of asthma. Non-smoker and with a history of seasonalallergies.The ROS is otherwise negative.The patient's pmh, medications, allergies, and past visits are reviewed.PHYSICAL EXAM:BP 107/68 Pulse (!) 58 Temp 36.6 ?C (97.9 ?F) (Tympanic) Resp 16 Wt62.1 kg (137 lb) LMP 12/20/2016 BMI 22.11 kg/y2Tjgxuxa appearance: tired/ill appearing, in no acute distressHead: NormocephalicEyes: conjunctiva pink and moist, no icterus, sclera white, non-injectedEars: Right ear: Normal, TM - clear with good landmarks. Left ear: Normal, TM -erythematous with air bubbles and effusionNose: mucosa erythematous and swollen, no sinus tenderness.Oropharynx:mo ist without lesions, No erythema, exudates or tonsillarhypertrophy.Nec k:supple and no adenopathyHeart: Negative. RRR without obvious murmur, gallop, or rubs. No ectopy.Lungs: clear to auscultation, without rales or wheeze, good air exchangeASSESSMENT/PLAN: 1. Acute non-recurrent sinusitis, unspecified location - ICD9: 461.9, ICD10:J01.90 (primary diagnosis)- Will begin treatment with Doxycyline due to penicillin allergy- The patient should also use Flonase. Advised to stop using combination coldmedicine. Can take cough medicine as needed for cough and Ibuprofen or Tylenolfor headache.- Supportive care with plenty of fluids, rest, and analgesia prn.- Follow up in 3-5 days if symptoms persist or worsen.2. Acute otitis media, left - ICD9: 382.9, ICD10: H66.92Ear infection has not resolved, start Doxycycline as above3. Cough - ICD9: 786.2, ICD10: D31Lkave medicine as neededMendy Older, CNPNanelson Older, INDUSTRIAL ENGINEERING DIRECTOR 01/05/2017 7:12 PM SignedFlonase for nasal congestion and sinus pain/pressureReferring Provider: SELF [200]Allergies As of Date: 01/05/2017 Noted Allergy ReactionAMOXICILLIN 03/24/2005 4 - HivesBIAXIN (CLARITHROMYCIN) 03/24/2005 4 - Hivesseasonal allergies [Other] 06/15/2008STRAWBERRY FLAVORING (FLAVORING A*03/24/2005 4 - Hives Comments: also,ithcy skin--SEEMS TO HAVE RESOLVED FROM THIS ALLERGYDate Reviewed: 01/05/2017Reviewed by: Jaida Severino Cma - Fully AssessedReason for Visit: Pain, Sinus [857] Cmt: sinus pressure(headache)/drain age x 4 weeks Earache [243] Cmt: (both) x 4 weeks Cough [28] Cmt: cough and congestion x 4 weeksPrimary Visit Diagnosis:Acute non-recurrent sinusitis, unspecified location [J01.90] Other Visit Diagnoses:Acute otitis media, left [H66.92] Cough [R05]Order(s):doxycyclin e monohydrate (MONODOX) 100 mg capsuleTake 1 capsule by mouth twice daily for 7 days.Disp: 14 capsuleRfl: 0Prescriptions as of 01/05/2017 Sig: CEFDINIR 300 MG CAPSULE Take 1 capsule by mouth twice* DOXYCYCLINE MONOHYDRATE 100 M* Take 1 capsule by mouth twice* ALBUTEROL SULFATE HFA 90 MCG/* Inhale 2 Puffs as instructed * LIDOCAINE 2 % MUCOSAL SOLUTION Take 5 mL by mouth as needed *Problem List As Of Date: 01/05/2017(None) Other instructions from your clinician: Flonase for nasal congestion and sinus pain/pressurePrescriptio ns ordered this encounter Disp Refills Start End DOXYCYCLINE MONOHYDRATE 100 MG CAPSU* 14 c* 0 01/05/2017 01/12/2017 Route: ORAL Sig: Take 1 capsule by mouth twice daily for 7 days. Status:Closed by MENDY RUSHING CNP on 01/05/17 [facility] PROGRESSon 01-05-2017 PROGRESS HNO ID: [id number]: Mendy (Traci) DandyService: (none)Author Type: Nurse PractitionerType: Progress NotesFiled: 01/05/2017 7:18 PMNote Text:CC: Patient presents with:Pain, Sinus: sinus pressure(headache)/drain age x 4 weeksEarache: (both) x 4 weeksCough: cough and congestion x 4 weeksHPI:Yrn Gale is a 21 year old female who presents to the officewith complaint of sinus symptoms for a month. Was started on Omnicef 10days ago for ear infection but has not been feeling well for about onemonth. Sinus symptoms worsened over the past week. Today associatedsymptoms includes nasal congestion, facial pain/pressure maxillary,headache, ear pain L>R and cough- nonproductive. She denies fever,wheezing and dyspnea. Treatments tried include OTC cold medicine withtemporary relief of symptoms.Patient denies a history of asthma. Non-smoker and with a history ofseasonal allergies.The ROS is otherwise negative.The patient's pmh, medications, allergies, and past visits are reviewed.PHYSICAL EXAM:BP 107/68 Pulse (!) 58 Temp 36.6 ?C (97.9 ?F) (Tympanic) Resp 16 Wt 62.1 kg (137 lb) LMP 12/20/2016 BMI 22.11 kg/q6Uhgixtg appearance: tired/ill appearing, in no acute distressHead: NormocephalicEyes: conjunctiva pink and moist, no icterus, sclera white, non-injectedEars: Right ear: Normal, TM - clear with good landmarks. Left ear: Normal,TM - erythematous with air bubbles and effusionNose: mucosa erythematous and swollen, no sinus tenderness.Oropharynx:mo ist without lesions, No erythema, exudates or tonsillarhypertrophy.Nec k:supple and no adenopathyHeart: Negative. RRR without obvious murmur, gallop, or rubs. No ectopy.Lungs: clear to auscultation, without rales or wheeze, good air exchangeASSESSMENT/PLAN: 1. Acute non-recurrent sinusitis, unspecified location - ICD9: 461.9,ICD10: J01.90 (primary diagnosis)- Will begin treatment with Doxycyline due to penicillin allergy- The patient should also use Flonase. Advised to stop using combinationcold medicine. Can take cough medicine as needed for cough and Ibuprofenor Tylenol for headache.- Supportive care with plenty of fluids, rest, and analgesia prn.- Follow up in 3-5 days if symptoms persist or worsen.2. Acute otitis media, left - ICD9: 382.9, ICD10: H66.92Ear infection has not resolved, start Doxycycline as above3. Cough - ICD9: 786.2, ICD10: W47Bnsqv medicine as neededTRACI Dent [facility] CNOVon 12-27-2016 CNOV Office Visit (UCWSTR) YRN JARVIS ([id number]) 1995 FDate Time Provider Department12/27/16 5:00 PM KOURTNEY DEMPSEY (NICO) WSTR During your visit today, we recorded the following information about you: Temperature Pulse Respiration Blood pressure 98.2 degrees 76/minute 16/minute 108/60 Weight Last Period 62.1 kg 12/20/16Kourtney Dempsey CNP, CNP 12/27/2016 5:03 PM SignedHPIPatient presents with:Head Congestion: chest congestion, cough, bilateral ear pain and sore throat x10 daysAdvil cold and sinus otc with minimal relief.Denies hx of asthma, bronchitis, or smoking.States hx of pneumonia last fall.Review of SystemsConstitutional: Negative for chills, fever and malaise/fatigue.HENT: Positive for congestion, ear pain and sore throat.Eyes: Negative for discharge and redness.Respiratory: Positive for cough. Negative for hemoptysis, sputum production,shortness of breath and wheezing.Gastrointestina l: Negative for abdominal pain, diarrhea, nausea and vomiting.Skin: Negative for rash.Neurological: Positive for headaches.All other systems reviewed and are negative.PAST MEDICAL HISTORYDiagnosis Date- Infectious mononucleosis 08/2011- PMH - PAST MEDICAL HISTORY OF 12/1999 normal color visionPAST SURGICAL HISTORYNo date: NONEALLERGIES Amoxicillin; Biaxin [Clarithromycin]; Seasonal Allergies [Other];[place] Flavoring [Flavoring Agent]MEDICATIONSalbuter ol HFA (VENTOLIN HFA) 90 mcg/actuation inhaler Inhale 2 Puffs asinstructed every 4 hours as needed for Wheezing/Shortness of Breath.lidocaine viscous (LIDOCAINE VISCOUS) 2 % solution Take 5 mL by mouth as neededfor Pain (Take every 3 hours as needed).FAMILY HISTORY Colon Cancer Paternal Grandfather None Mother None FatherSocial HistorySubstance Use Topics- Smoking status: Never Smoker- Smokeless tobacco: Not on file Comment: No smoking in family- Alcohol use No Comment: No alcohol use in homePhysical ExamConstitutional: She is well-developed, well-nourished, and in no distress.HENT:Head: Normocephalic.Right Ear: Ear canal normal. There is tenderness. Tympanic membrane iserythematous.Left Ear: Ear canal normal. There is tenderness. Tympanic membrane iserythematous.Nose: Rhinorrhea present. Right sinus exhibits no maxillary sinus tendernessand no frontal sinus tenderness. Left sinus exhibits no maxillary sinustenderness and no frontal sinus tenderness.Mouth/Throat: Posterior oropharyngeal erythema (PND) present.Eyes: Conjunctivae are normal.Neck: Normal range of motion. Neck supple.Cardiovascular: Normal rate, regular rhythm and normal heart sounds.Pulmonary/Chest: Effort normal and breath sounds normal. No respiratorydistress. She has no wheezes.Abdominal: Soft. She exhibits no distension. There is no tenderness.Lymphadenopat hy: She has cervical adenopathy.Skin: Skin is warm and dry. No rash noted.Nursing note and vitals reviewed.ASSESSMENT/PLAN :1. Bilateral acute serous otitis media, recurrence not specified - ICD9:381.01, ICD10: H65.03 (primary diagnosis)- Will begin treatment with as per antibiotic as written, see orders- The patient should also be given OTC decongestants prn, OTC cough and coldmeds as needed, warm salt water gargles, throat lozenges and/or OTC throatspray as needed and nasal saline gtts and suction prn for the first 5-7 days oftreatment.- Supportive care with plenty of fluids, rest, and analgesia prn.- Follow up in 3-5 days if symptoms persist or worsen.2. Viral URI with cough - ICD9: 465.9, ICD10: J06.9, B97.89- Discussed viral etiology and rationale for treatment.- Symptomatic treatment with prn analgesia- Supportive care with fluids and rest- The patient may also use OTC decongestants prn, OTC cough and cold meds asneeded, warm salt water gargles, throat lozenges and/or OTC throat spray asneeded and nasal saline gtts and suction prn.- Follow up in 3-5 days if symptoms persist or sooner if worsening of symptomsPrescription instructions reviewed with patient as applicable. Patient advisedif symptoms do not improve or if symptoms worsen sooner, to contact theirprimary care physician. Potential red flag symptoms discussed with thepatient. Reviewed appropriate action plan to take if red flag symptoms occur.Patient agreeable to treatment plan.Jose Garcia CNP, INDUSTRIAL ENGINEERING DIRECTOR 12/27/2016 5:01 PM SignedOTITIS MEDIAGENERAL INFORMATION:Otitis media is an infection of the middle ear. The middle ear sits behind theeardrum. This infection may be caused by a virus or bacteria and often followsa cold. Children often have repeat ear infections. Otitis media is notcontagious.INSTRUCTIO NS:1. An antibiotic has been prescribed. It should be taken exactly asprescribed. Do not stop the medicine even if the symptoms go away.2. Jcww-kva-dnxwubx pain medication may be taken or other pain medication asprescribed by the doctor.3. Nothing should be placed in the ear unless instructed by your doctor.4. The patient may return to school/daycare or work when the temperature isnormal (98.6 F or 37 C).5. The patient should not swim while the ear is infected.CONTACT YOUR DOCTOR IF YOU OR YOUR CHILD:1. Does not feel better within 36 hours.2. Develops a temperature over 102E F (39E C).3. Starts vomiting or has diarrhea.4. Develops drainage from the affected ear.5. Has any new problem that may be related to the medicine prescribed.RETURN TO THE ED IF:1. You or your child has a severe headache or pain around the ear.2. You or your child notice swelling around the ear.3. You or your child has a seizure (convulsion), twitching of the facialmuscles, or passes out.4. You or your child is dizzy, has a stiff neck, or cannot walk or talknormally.5. Your child becomes more irritable or listless (not interested in his or hersurroundings, does not get soothed by you holding him or her).Referring Provider: SELF [200]Allergies As of Date: 12/27/2016 Noted Allergy ReactionAMOXICILLIN 03/24/2005 4 - HivesBIAXIN (CLARITHROMYCIN) 03/24/2005 4 - Hivesseasonal allergies [Other] 06/15/2008STRAWBERRY FLAVORING (FLAVORING A*03/24/2005 4 - Hives Comments: also,ithcy skin--SEEMS TO HAVE RESOLVED FROM THIS ALLERGYDate Reviewed: 12/27/2016Reviewed by: Kourtney Benavidez (Commercial Solar Sales Consultant) TRACI Dempsey - Fully AssessedReason for Visit: Head Congestion [234] Cmt: chest congestion, cough, bilateral ear pain and sore throat x 10 daysPrimary Visit Diagnosis:Bilateral acute serous otitis media, recurrence not specified [H65.03] Other Visit Diagnosis:Viral URI with cough [J06.9, B97.89]Order(s):cefdinir (OMNICEF) 300 mg capsuleTake 1 capsule by mouth twice daily for 10 days.Disp: 20 capsuleRfl: 0 predniSONE (DELTASONE) 20 mg tabletTake 2 tablets by mouth once daily for 4 days. Take daily with food.Disp: 8 tabletRfl: 0Prescriptions as of 12/27/2016 Sig: CEFDINIR 300 MG CAPSULE Take 1 capsule by mouth twice* PREDNISONE 20 MG TABLET Take 2 tablets by mouth once * ALBUTEROL SULFATE HFA 90 MCG/* Inhale 2 Puffs as instructed * LIDOCAINE 2 % MUCOSAL SOLUTION Take 5 mL by mouth as needed *Medication notes this encounter ALBUTEROL SULFATE HFA 90 MCG/ACTUATION AEROSOL INHALER >> Davin Haynes Ma 12/27/2016 4:53 PM >> DAVIN HAYNES MA Dec 27, 2016 4:53 PM done LIDOCAINE 2 % MUCOSAL SOLUTION >> Davin Haynes Ma 12/27/2016 4:53 PM >> DAVIN HAYNES MA Dec 27, 2016 4:53 PM doneProblem List As Of Date: 12/27/2016(None) Other instructions from your clinician: OTITIS MEDIA GENERAL INFORMATION: Otitis media is an infection of the middle ear. The middle ear sits behind the eardrum. This infection may be caused by a virus or bacteria and often follows a cold. Children often have repeat ear infections. Otitis media is not contagious. INSTRUCTIONS: 1. An antibiotic has been prescribed. It should be taken exactly as prescribed. Do not stop the medicine even if the symptoms go away. 2. Wytc-nst-hbrteyx pain medication may be taken or other pain medication as prescribed by the doctor. 3. Nothing should be placed in the ear unless instructed by your doctor. 4. The patient may return to school/daycare or work when the temperature is normal (98.6 F or 37 C). 5. The patient should not swim while the ear is infected. CONTACT YOUR DOCTOR IF YOU OR YOUR CHILD: 1. Does not feel better within 36 hours. 2. Develops a temperature over 102E F (39E C). 3. Starts vomiting or has diarrhea. 4. Develops drainage from the affected ear. 5. Has any new problem that may be related to the medicine prescribed. RETURN TO THE ED IF: 1. You or your child has a severe headache or pain around the ear. 2. You or your child notice swelling around the ear. 3. You or your child has a seizure (convulsion), twitching of the facial muscles, or passes out. 4. You or your child is dizzy, has a stiff neck, or cannot walk or talk normally. 5. Your child becomes more irritable or listless (not interested in his or her surroundings, does not get soothed by you holding him or her).Prescriptions ordered this encounter Disp Refills Start End CEFDINIR 300 MG CAPSULE 20 c* 0 12/27/2016 01/06/2017 Route: ORAL Sig: Take 1 capsule by mouth twice daily for 10 days. PREDNISONE 20 MG TABLET 8 ta* 0 12/27/2016 12/31/2016 Route: ORAL Sig: Take 2 tablets by mouth once daily for 4 days. Take daily with food.Disposition: Return if symptoms worsen or fail to improve.Follow-up and Disposition History RecordedEncounter Number: [id number] Status:Closed by KOURTNEY DEMPSEY on 12/27/16 [facility] PROGRESSon 12-27-2016 PROGRESS HNO ID: [id number]: Kourtney Benavidez (Commercial Solar Sales Consultant) [place], CNPService: (none)Author Type: Nurse PractitionerType: Progress NotesFiled: 12/27/2016 5:03 PMNote Text:HPIPatient presents with:Head Congestion: chest congestion, cough, bilateral ear pain and sorethroat x 10 daysAdvil cold and sinus otc with minimal relief.Denies hx of asthma, bronchitis, or smoking.States hx of pneumonia last fall.Review of SystemsConstitutional: Negative for chills, fever and malaise/fatigue.HENT: Positive for congestion, ear pain and sore throat.Eyes: Negative for discharge and redness.Respiratory: Positive for cough. Negative for hemoptysis, sputumproduction, shortness of breath and wheezing.Gastrointestina l: Negative for abdominal pain, diarrhea, nausea andvomiting.Skin: Negative for rash.Neurological: Positive for headaches.All other systems reviewed and are negative.PAST MEDICAL HISTORYDiagnosis Date- Infectious mononucleosis 08/2011- PMH - PAST MEDICAL HISTORY OF 12/1999 normal color visionPAST SURGICAL HISTORYNo date: NONEALLERGIES Amoxicillin; Biaxin [Clarithromycin]; Seasonal Allergies[Other]; [place] Flavoring [Flavoring Agent]MEDICATIONSalbuter ol HFA (VENTOLIN HFA) 90 mcg/actuation inhaler Inhale 2 Puffs asinstructed every 4 hours as needed for Wheezing/Shortness of Breath.lidocaine viscous (LIDOCAINE VISCOUS) 2 % solution Take 5 mL by mouth asneeded for Pain (Take every 3 hours as needed).FAMILY HISTORY Colon Cancer Paternal Grandfather None Mother None FatherSocial HistorySubstance Use Topics- Smoking status: Never Smoker- Smokeless tobacco: Not on file Comment: No smoking in family- Alcohol use No Comment: No alcohol use in homePhysical ExamConstitutional: She is well-developed, well-nourished, and in no distress.HENT:Head: Normocephalic.Right Ear: Ear canal normal. There is tenderness. Tympanic membrane iserythematous.Left Ear: Ear canal normal. There is tenderness. Tympanic membrane iserythematous.Nose: Rhinorrhea present. Right sinus exhibits no maxillary sinustenderness and no frontal sinus tenderness. Left sinus exhibits nomaxillary sinus tenderness and no frontal sinus tenderness.Mouth/Throat: Posterior oropharyngeal erythema (PND) present.Eyes: Conjunctivae are normal.Neck: Normal range of motion. Neck supple.Cardiovascular: Normal rate, regular rhythm and normal heart sounds.Pulmonary/Chest: Effort normal and breath sounds normal. No respiratorydistress. She has no wheezes.Abdominal: Soft. She exhibits no distension. There is no tenderness.Lymphadenopat hy: She has cervical adenopathy.Skin: Skin is warm and dry. No rash noted.Nursing note and vitals reviewed.ASSESSMENT/PLAN :1. Bilateral acute serous otitis media, recurrence not specified - ICD9:381.01, ICD10: H65.03 (primary diagnosis)- Will begin treatment with as per antibiotic as written, see orders- The patient should also be given OTC decongestants prn, OTC cough andcold meds as needed, warm salt water gargles, throat lozenges and/or OTCthroat spray as needed and nasal saline gtts and suction prn for the first5-7 days of treatment.- Supportive care with plenty of fluids, rest, and analgesia prn.- Follow up in 3-5 days if symptoms persist or worsen.2. Viral URI with cough - ICD9: 465.9, ICD10: J06.9, B97.89- Discussed viral etiology and rationale for treatment.- Symptomatic treatment with prn analgesia- Supportive care with fluids and rest- The patient may also use OTC decongestants prn, OTC cough and cold medsas needed, warm salt water gargles, throat lozenges and/or OTC throatspray as needed and nasal saline gtts and suction prn.- Follow up in 3-5 days if symptoms persist or sooner if worsening ofsymptomsPrescription instructions reviewed with patient as applicable. Patientadvised if symptoms do not improve or if symptoms worsen sooner, tocontact their primary care physician. Potential red flag symptomsdiscussed with the patient. Reviewed appropriate action plan to take ifred flag symptoms occur. Patient agreeable to treatment plan.Kourtney Dempsey CNP Normal [facility] Vital Signs Date Time Vital Sign Value Performing Clinician Maloriei betty 02-13-2025 16:05-0400 Body height 170.18 cm No Primary Care Physician [facility] 02-13-2025 16:05-0400 Body mass index (BMI) [Ratio] 21.5 kg/m2 No Primary Care Physician [facility] 02-13-2025 16:05-0400 Body weight 62.31 kg No Primary Care Physician [facility] 02-13-2025 16:05-0400 Diastolic blood pressure 71 mm[Hg] No Primary Care Physician [facility] 02-13-2025 16:05-0400 Systolic blood pressure 110 mm[Hg] No Primary Care Physician [facility] 01-17-2025 15:28-0400 Body height 170.18 cm No Primary Care Physician [facility] 01-17-2025 15:28-0400 Body mass index (BMI) [Ratio] 20.3 kg/m2 No Primary Care Physician [facility] 01-17-2025 15:28-0400 Body weight 58.99 kg No Primary Care Physician [facility] 01-17-2025 15:28-0400 Diastolic blood pressure 70 mm[Hg] No Primary Care Physician [facility] 01-17-2025 15:28-0400 Systolic blood pressure 117 mm[Hg] No Primary Care Physician [facility] 12-19-2024 09:44-0400 Body height 170.18 cm No Primary Care Physician [facility] 12-19-2024 09:44-0400 Body mass index (BMI) [Ratio] 19.9 kg/m2 No Primary Care Physician [facility] 12-19-2024 09:44-0400 Body weight 57.71 kg No Primary Care Physician [facility] 12-19-2024 09:44-0400 Diastolic blood pressure 68 mm[Hg] No Primary Care Physician [facility] 12-19-2024 09:44-0400 Systolic blood pressure 103 mm[Hg] No Primary Care Physician [facility] 09-14-2023 15:51-0400 Body height 170.18 cm No Primary Care Physician [facility] 09-14-2023 15:51-0400 Body mass index (BMI) [Ratio] 22.1 kg/m2 No Primary Care Physician [facility] 09-14-2023 15:51-0400 Body weight 64.12 kg No Primary Care Physician [facility] 09-14-2023 15:51-0400 Diastolic blood pressure 68 mm[Hg] No Primary Care Physician [facility] 09-14-2023 15:51-0400 Systolic blood pressure 110 mm[Hg] No Primary Care Physician [facility] 09-07-2023 15:52-0400 Body mass index (BMI) [Ratio] 22.3 kg/m2 No Primary Care Physician [facility] 09-07-2023 15:52-0400 Body weight 64.58 kg No Primary Care Physician [facility] 09-07-2023 15:52-0400 Diastolic blood pressure 69 mm[Hg] No Primary Care Physician [facility] 09-07-2023 15:52-0400 Systolic blood pressure 119 mm[Hg] No Primary Care Physician [facility] 08-25-2023 15:14-0400 Body mass index (BMI) [Ratio] 22.4 kg/m2 No Primary Care Physician [facility] 08-25-2023 15:14-0400 Body weight 64.86 kg No Primary Care Physician [facility] 08-25-2023 15:14-0400 Diastolic blood pressure 62 mm[Hg] No Primary Care Physician [facility] 08-25-2023 15:14-0400 Systolic blood pressure 102 mm[Hg] No Primary Care Physician [facility] 08-03-2023 15:48-0400 Body mass index (BMI) [Ratio] 22.2 kg/m2 No Primary Care Physician [facility] 08-03-2023 15:48-0400 Body weight 64.46 kg No Primary Care Physician [facility] 08-03-2023 15:48-0400 Diastolic blood pressure 68 mm[Hg] No Primary Care Physician [facility] 08-03-2023 15:48-0400 Systolic blood pressure 106 mm[Hg] No Primary Care Physician [facility] 07-22-2023 16:20-0500 Body mass index (BMI) [Ratio] 21.7 kg/m2 No Primary Care Physician [facility] 07-22-2023 16:20-0500 Body weight 62.76 kg No Primary Care Physician [facility] 07-21-2023 15:47-0500 Diastolic blood pressure 65 mm[Hg] No Primary Care Physician [facility] 07-21-2023 15:47-0500 Systolic blood pressure 105 mm[Hg] No Primary Care Physician [facility] 07-21-2023 15:30-0500 Body mass index (BMI) [Ratio] 21.9 kg/m2 No Primary Care Physician [facility] 07-21-2023 15:30-0500 Body weight 63.5 kg No Primary Care Physician [facility] 06-28-2023 15:51-0500 Body mass index (BMI) [Ratio] 22.1 kg/m2 No Primary Care Physician [facility] 06-28-2023 15:51-0500 Body weight 63.95 kg No Primary Care Physician [facility] 06-28-2023 15:51-0500 Diastolic blood pressure 70 mm[Hg] No Primary Care Physician [facility] 06-28-2023 15:51-0500 Systolic blood pressure 112 mm[Hg] No Primary Care Physician [facility] 06-03-2023 15:07-0500 Body height 170.18 cm No Primary Care Physician [facility] 06-03-2023 15:07-0500 Body mass index (BMI) [Ratio] 21.6 kg/m2 No Primary Care Physician [facility] 06-03-2023 15:07-0500 Body weight 62.65 kg No Primary Care Physician [facility] 06-03-2023 15:07-0500 Diastolic blood pressure 71 mm[Hg] No Primary Care Physician [facility] 06-03-2023 15:07-0500 Systolic blood pressure 117 mm[Hg] No Primary Care Physician [facility] 05-02-2023 16:32-0500 Body mass index (BMI) [Ratio] 21 kg/m2 No Primary Care Physician [facility] 05-02-2023 16:32-0500 Body weight 61 kg No Primary Care Physician [facility] 05-02-2023 16:32-0500 Diastolic blood pressure 52 mm[Hg] No Primary Care Physician [facility] 05-02-2023 16:32-0500 Systolic blood pressure 97 mm[Hg] No Primary Care Physician [facility] 04-04-2023 15:56-0500 Body height 170.18 cm No Primary Care Physician [facility] 04-04-2023 15:56-0500 Body mass index (BMI) [Ratio] 20.2 kg/m2 No Primary Care Physician [facility] 04-04-2023 15:56-0500 Body weight 58.68 kg No Primary Care Physician [facility] 04-04-2023 15:56-0500 Diastolic blood pressure 71 mm[Hg] No Primary Care Physician [facility] 04-04-2023 15:56-0500 Systolic blood pressure 113 mm[Hg] No Primary Care Physician [facility] 03-10-2023 14:35-0400 Body height 170.18 cm No Primary Care Physician [facility] 03-10-2023 14:33-0400 Body mass index (BMI) [Ratio] 19.8 kg/m2 No Primary Care Physician [facility] 03-10-2023 14:33-0400 Body weight 57.37 kg No Primary Care Physician [facility] 03-10-2023 14:33-0400 Diastolic blood pressure 79 mm[Hg] No Primary Care Physician [facility] 03-10-2023 14:33-0400 Systolic blood pressure 119 mm[Hg] No Primary Care Physician [facility] 09-13-2022 08:17-0400 Body height 170.[address] Jb Birmingham Work Phone: [facility] 09-13-2022 08:17-0400 Body mass index (BMI) [Ratio] 20.5 kg/m2 Dr. Jb Birmingham Work Phone: [facility] 09-13-2022 08:17-0400 Body weight 59.[address] Jb Birmingham Work Phone: [facility] 09-13-2022 08:17-0400 Diastolic blood pressure 75 mm[Hg] Dr. Jb Birmingham Work Phone: [facility] 09-13-2022 08:17-0400 Systolic blood pressure 118 mm[Hg] Dr. Jb Birmingham Work Phone: [facility] Encounters Encounter Date Encounter Type Care Provider Facility Start: 03-20-2025 End: 03-20-2025 ambulatory MOHINI MAJANO [facility] Start: 03-14-2025 End: 03-14-2025 ambulatory [place]ini [place]as [place] [place]: 02-13-2025 End: 02-13-2025 Patient encounter procedure Amairani Citronelle DRIVER GUARD-C -[facility] Work Phone: Start: 02-13-2025 End: 02-13-2025 ambulatory No Primary Care Physician -[facility] Start: 01-24-2025 End: 01-24-2025 ambulatory No Primary Care Physician -Lab [facility] Start: 01-24-2025 End: 01-24-2025 Patient encounter procedure Julee Blanc CNM -Lab [facility] Start: 01-24-2025 End: 01-24-2025 ambulatory No Primary Care Physician Facility:[facility] Start: 01-17-2025 End: 01-17-[address] Marisela Rodriguez MD -[facility] Work Phone: Start: 01-17-2025 End: 01-17-2025 ambulatory No Primary Care Physician -[facility] Start: 12-19-2024 End: 12-19-2024 ambulatory No Primary Care Physician -[facility] Start: 12-19-2024 End: 12-19-[address] Mohini Arias DO -[facility] Work Phone: Start: 12-19-2024 End: 12-19-[address] Mohini Arias DO -[facility] Work Phone: Start: 12-19-2024 End: 12-19-2024 ambulatory No Primary Care Physician -[facility] Start: 12-19-2024 End: 12-19-2024 ambulatory Mohini Arias Facility:[facility] Start: 12-14-2024 Non-patient / Non-visit Sarah Goncalves RN -[facility] Work Phone: Start: 12-14-2024 ambulatory Sarah Goncalves Facility :[facility] Start: 09-14-2023 End: 09-14-2023 ambulatory No Primary Care Physician [facility] Work Phone: Start: 09-14-2023 End: 09-14-2023 Patient encounter procedure No Primary Care Physician [facility]-Laboratory, Specimen Work Phone: Start: 09-14-2023 End: 09-14-2023 Patient encounter procedure No Primary Care Physician [facility] Work Phone: Start: 09-07-2023 End: 09-07-2023 Patient encounter procedure No Primary Care Physician [facility] Work Phone: Start: 08-25-2023 End: 08-25-2023 Patient encounter procedure No Primary Care Physician [facility] Work Phone: Start: 08-03-2023 End: 08-03-2023 Patient encounter procedure No Primary Care Physician [facility] Work Phone: Start: 07-22-2023 End: 07-22-2023 Patient encounter procedure No Primary Care Physician [facility] Work Phone: Start: 07-21-2023 End: 07-21-2023 Patient encounter procedure No Primary Care Physician [facility] Work Phone: Start: 06-28-2023 End: 06-28-2023 Patient encounter procedure No Primary Care Physician [facility] Work Phone: Start: 06-07-2023 End: 06-07-2023 ambulatory No Primary Care Physician [facility] Work Phone: Start: 06-07-2023 End: 06-07-2023 Patient encounter procedure No Primary Care Physician [facility]Labor[facility] Work Phone: Start: 06-03-2023 End: 06-03-2023 Patient encounter procedure No Primary Care Physician [facility] [place] Work Phone: Start: 05-02-2023 End: 05-02-2023 Patient encounter procedure No Primary Care Physician [facility] Work Phone: Start: 04-04-2023 End: 04-04-2023 ambulatory No Primary Care Physician [facility] Work Phone: Start: 04-04-2023 End: 04-04-2023 Patient encounter procedure No Primary Care Physician [facility] Work Phone: Start: 03-10-2023 End: 03-10-2023 ambulatory No Primary Care Physician [facility] Work Phone: Start: 03-10-2023 End: 03-10-2023 Patient encounter procedure No Primary Care Physician [facility]Laboratory, Specimen Work Phone: Start: 03-10-2023 End: 03-10-2023 Patient encounter procedure No Primary Care Physician [facility] Work Phone: Start: 09-13-2022 End: 09-13-[address] Jb Birmingham Work Phone: [facility] Work Phone: Start: 09-13-2022 End: 09-13-[address] Jb Birmingham Work Phone: [facility]-Laboratory, Specimen Start: 09-13-2022 End: 09-13-[address] Jb Birmingham Work Phone: [facility] Start: 01-05-2017 End: 01-05-2017 Ambulatory BRITTNEY DYER [facility] Start: 12-27-2016 End: 12-27-2016 Ambulatory KOURTNEY VÁSQUEZ [facility] Procedures Date Procedure Procedure Detail Performing Clinician Start: 01-24-2025 Procedure No Primary Care Physician Start: 01-24-2025 Hepatitis C antibody measurement No Primary Care Physician Comment on above: Reactive: Presumptiv e evidence of antibodies to HCV. Follow CDC recommendations for supplemental testing.Non-Reactive: Antibodies to HCV were not detected; does not exclude the possibility of exposure to HCVReactive Results are presumptive evidence of antibodies to HCV. Follow CDC recommendations for supplemental testing.Order confirmation testing: HCV Quant by PCR testing - HCVPCR #[id number] Non Reactive: < 0.8 Equivocal: >/= 0.8 to < 1.0 Reactive: >/= 1.0The CDC requires that a reactive/equivocal HCV antibody result be sent out for confirmation. HCV Quant by PCR testing. Start: 01-24-2025 Rubella IgG measurement No Primary Care Physician Comment on above: Antibody Result: Int erpretationNon-Reactive: Non- ImmuneReactive: ImmuneThe following results were obtained with the [employer] Rubella IgG assay. Results from assays of other manufacturers cannot be used interchangeably. Start: 01-24-2025 Serologic test for syphilis No Primary Care Physician Start: 12-19-2024 Urine culture No Primar y Care Physician Start: 09-14-2023 Group B Streptococcu s Culture No Primary Care Physician Start: 03-10-2023 Urine culture No Primar y Care Physician Plan of Treatment Date Care Activity Detail Author Start: 02-13-2025 End: 02-13-2025 Patient encounter procedure Abnormal genetic test during -[facility] [place] Work Phone: Start: 01-17-2025 [facility] Start: 09-13-2022 Liquid based cervical cytology screening [facility] Administration of [facility] Anti-D (Rh) immunoglobulin [facility] CBC W Auto Different ial panel - Blood [facility] CBC W Auto Different ial panel - Blood [facility] Chlamydia deoxyribon ucleic acid detection [facility] Hepatitis B surface antigen measurement [facility] Hepatitis C antibody measurement [facility] Hepatitis C antibody measurement [facility] HIV 1+2 Ab+HIV1 p24 Ag [Presence] in Serum or Plasma by Immunoassay [facility] Path report.final Dx Spec Wo [facility] Rubella IgG measurement [facility] Rubella IgG measurement [facility] Serologic test for syphilis [facility] Treponema sp Ab [Pre sence] in Serum [facility] Immunizations Immunization Date Immunization Notes Care Provider Fa cility 08-25-2023 tetanus toxoid, redu rodrigo diphtheria toxoid, and acellular pertussis vaccine, adsorbed No Primary Care Physician [facility] Payers Date Payer Category Payer Self-pay 2024 Unknown [id number] 1995 Unknown [id number] [id number] Unknown [id number] 2.16.8 [id number] Unknown [id number] 2.16.8 [id number] Unknown [id number] 2.16.8 [id number] Unknown [id number] 2.16.8 [id number] Unknown [id number] 2.16.8 [id number] Unknown [id number] 2.16.8 [id number] Unknown [id number] 2.16.8 [id number] Social History Date Type Detail Facility Start: 09-13-2022 End: 09-07-2023 Tobacco smoking status NHIS Unknown if ever smoked [facility] Start: 1995 Sex Assigned At Female [facility] Start: 12-14-2024 Tobacco smoking stat us NHIS Never smoked tobacco (finding) [facility] Sex Female [facility] Clinical Notes 01-03-2023 to 02-13-2025 Note Date & Type Note Facility 02-13-2025 Progress note [facility] 02-13-2025 Progress note Note Date/Time February 13, 2025 4:30pm [facility] [address], [address] [place] [address] OFFICE VISIT Date of Service: 02/13/25 MR#: [id number] Acct: [id number] Name: DELAROSAYRN Rep #: [id number] : 1995 Provider: NILAY Agosto Age/Sex: 29/F [place] [facility] [place]: Signed Intake Vital Signs 11/16/23 08:30 01/17/25 15:28 02/13/25 16:05 Height 5 ft 7 in 5 ft 7 in 5 ft 7 in Weight: 137 lb 6 oz BMI 21.5 BP 110/71 Intake Visit Reasons: 15wk OB Chief Complaint: 15wk OB Manager Placement Required: No Is patient in pain?: No Allergies amoxicillin Allergy (Mild, Verified 02/13/25 16:04) Hives clarithromycin (From Biaxin) Allergy (Mild, Verified 02/13/25 16:04) Hives Medications ?Medication ?Instructions ?Recorded ?Confirmed ?Type multivitamin no.47-iron fum 27 1 cap PO DAILY pregnanc y 03/10/23 02/13/25 History mg-folate no.1 1 mg-dha 300 mg capsule (PNV-DHA) Last Menstrual Period: 10/26/24 : No PFSH PFSH Medical History Abnormal genetic test during Abnormal Pap smear of cervix Surgical History H/O wisdom tooth extraction Family History Grandmother Breast cancer, Onset Age: 60 Social History adopted: No household members: spouse and children housing: apartment number of children: 1 current occupational status: employed 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; 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 occupational exposures/hazards: No pets and animals: No history of recent travel: Yes ( - October 2024) out of state: Yes out of country: No sexually active: Yes Smoking Status: Never smoker second hand exposure: No alcohol intake: current alcohol intake frequency: holidays/special occasions only details: Not while substance use type: does not use well-balanced diet: daily or most days caffeine: Yes Type: coffee Number of servings: 1 eating out: rarely or never during the past year weight has: remained stable what type of physical activity do you participate in: running and weight training frequency: 5-6 times per week duration: 30-45 minutes/day osbaldo/protestant: Amish seatbelt use: always do you feel safe at home: Yes additional social history: : 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 Date Name GA/Weeks Outcome Route Bth Weight Infant Gen Labor Lgth Anesthesia Del Locatn Provider FOB 10/04/23 Jerri 39 live - full term 6lbs 10oz Female none [facility] Delivery Date: 10/04/23 Last Updated by: Sarah Goncalves, RN see problem list for complications, and KW 39.1 SROM girl HPI 15wk OB Details: YRN DELAROSA is a 29 year old who presents for routine OB visit. OB Visit [facility]QU[facility] Calculator Estimated Delivery Date Method Current WG Current Estimate 08/10/25 Ultrasound #1 14w 4d Other Estimates 08/02/25 LMP (Certain) 15w 5d Expected Delivery Route/Plan Labor Preferences- CB/BF classes: [] labor support person: [] labor intervention preferences: [] pain management options preferred: [] cut cord/dad catch: [] : [] PP control planned: [] discussed possible routes of delivery and associated risks: [] special requests: [] Specific Issue/Plans Covid status: [] Flu vaccine: [] Tdap vaccine: [] Rhogam: [] LARC form signed: [] Problem list reviewed and updated with the most current plan of care details and appropriate orders placed. Relevant counseling for the gestational age provided. Continue routine care and follow up unless otherwise noted in visit notes/problem list details Initial Weight: Not Recorded Date -?-?-?-?-?-?-?-?-?-?-?-?- EGA Weight BP Urine Prot -?-?-?-?-?-?-?-?-?-?-?-?- Glucose FHR FuHt Pres Dilation -?-?-?-?-?-?-?-?-?-?-?-?- Effaced St Visit Note 12/19/24 -?-?-?-?-?-?-?-?-?-?-?-?- 6w 4d 127 lb 4 oz 103/68 -?-?-?-?-?-?-?-?-?-?-?-?- 144 -?-?-?-?-?-?-?-?-?-?-?-?- JV- CRL off by a week from LMP but she only had one cycle since her last pr egnancy. [place] 08/10/25. undecided about NIPT. 01/17/25 -?-?-?-?-?-?-?-?-?-?-?-?- 10w 5d 130 lb 1 oz 117/70 -?-?-?-?-?-?-?-?-?-?-?-?- 158 -?-?-?-?-?-?-?-?-?-?-?-?- SM- no vb crampi ng 02/13/25 -?-?-?-?-?-?-?-?-?-?-?-?- 14w 4d 137 lb 6 oz 110/71 Nega tive -?-?-?-?-?-?-?-?-?-?-?-?- Negative 150 -?-?-?-?-?-?-?-?-?-?-?-?- MH for SM:No VB. Nausea resolved. echo at 22-24 wk ACOG First Trimester First Trimester: Desire for , Alcohol, Tobacco Cessation, Illicit/Recreational Drug/Substance Use, Intimate Partner Violence, Barriers to care, Unstable Housing, Communication Barriers, Environmental/Work Hazards, Anticipated Course of Care, Toxoplasmosis Precations, Use of Any medications, Sexual activity, Exercise, Dental Care, Sauna/Hot tub use, Seat Belt use, Childbirth classes/Hospital facilities, Travel, Indications for Ultrasound and Screening for Aneuploidy; Discussed Second Trimester Second Trimester: Signs and Symptoms of Labor, Selecting a care provider, Reproductive Life Planning & Contreception, Care Planning, Depression/Anxiety and Intimate Partner Violence; Discussed Tobacco Cessation Third Trimester Third Trimester: Pain Management Plans, Labor support person(s), Immediate Larc, Signs and Symptoms of Preeclampsia, Feeding No , Education and Family Medical Leave or Disability Forms Results POC Urinalysis 2 Dip (Clinic) Office Urine Glucose Negative Last Edit by Shawna Mandujano on 02/13/25 16:11 Office Urine Protein Negative Last Edit by Shawna Mandujano on 02/13/25 16:11 Coding Level of Care Code OB Routine Diagnoses Supervision of high risk in second trimester O09.92 Trimester: second trimester Previous child with congenital anomaly, currently , antepartum, single or unspecified fetus O35.2XX0 Fetus number: single or unspecified fetus 14 weeks gestation of Z3A.14 Weeks of gestation: 14 weeks Rh negative status during in second trimester O26.892; Z67.91 Trimester: second trimester Abnormal genetic test during O28.5 Assessment and Plan Assessment and Plan (1) Supervision of high-risk : Status: Acute Qualifiers: Trimester: second trimester Qualified Code(s): O09.92 - Supervision of high risk , unspecified, second trimester Comment: , MARQUIS 08/02/25, PC: Jerri, : Indra (2) Previous child with congenital anomaly, currently , antepartum: Status: Acute Qualifiers: Fetus number: single or unspecified fetus Qualified Code(s): O35.2XX0 - Maternal care for (suspected) hereditary disease in fetus, not applicable or unspecified Comment: Daughter with VSD and persistent Left SVC, echo recommended at 22-24 weeks. (3) : Status: Acute Qualifiers: Weeks of gestation: 14 weeks Qualified Code(s): Z3A.14 - 14 weeks gestation of Comment: Discuss genetic/carrier testing - prior carrier done, undecided. NIPT low risk. 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 NIPT low risk. Orders: Orders POC Urinalysis 2 Dip (Clinic) Today Plan problem list reviewed and updated for most current plan of care and appropriate orders placed. Relevant counseling for the gestational age appropriate provided and ACOG education checklist updated. Continue routine care and follow up. 02/13/25 1631 <Electronically signed by Marisela chaudhary MD> Date _ [facility]isela Rodriguez MD [facility] Signature: Date (if applicable) CC: ~ [facility] Work Phone: 1(188) 493-861008-28-2025 Progress [facility] [address] [place] [address], [address] [place] [id number] OFFICE VISIT Date of Service: 01/17/25 MR#: [id number] Acct: [id number] Name: YRN DELAROSA Rep #: [id number] : 1995 Provider: Dr. Higinio Rodriguez MD Age/Sex: 29/F [place] [facility] [place] Status: Signed Intake Vital Signs 11/16/23 08:30 12/19/24 09:44 01/17/25 15:28 Height 5 ft 7 in 5 ft 7 in 5 ft 7 in Weight: 130 lb 1 oz BMI 20.3 BP 117/70 Intake Visit Reasons: 10wk ob Manager Placement Required: No Is patient in pain?: No Allergies amoxicillin Allergy (Mild, Verified 01/17/25 15:30) Hives clarithromycin (From Biaxin) Allergy (Mild, Verified 01/17/25 15:30) Hives Medications ?Medication ?Instructions ?Recorded ?Confirmed ?Type multivitamin no.47-iron fum 27 1 cap PO DAILY pregnanc y 03/10/23 01/17/25 History mg-folate no.1 1 mg-dha 300 mg capsule (PNV-DHA) Last Menstrual Period: 10/26/24 Zika: Zika virus screening: Negative : No PFSH PFSH Medical History Abnormal genetic test during Abnormal Pap smear of cervix Surgical History H/O wisdom tooth extraction Family History Grandmother Breast cancer, Onset Age: 60 Social History adopted: No household members: spouse and children housing: apartment number of children: 1 current occupational status: employed 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; 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 occupational exposures/hazards: No pets and animals: No history of recent travel: Yes ( - October 2024) out of state: Yes out of country: No sexually active: Yes Smoking Status: Never smoker second hand exposure: No alcohol intake: current alcohol intake frequency: holidays/special occasions only details: Not while substance use type: does not use well-balanced diet: daily or most days caffeine: Yes Type: coffee Number of servings: 1 eating out: rarely or never during the past year weight has: remained stable what type of physical activity do you participate in: running and weight training frequency: 5-6 times per week duration: 30-45 minutes/day osbaldo/protestant: Amish seatbelt use: always do you feel safe at home: Yes additional social history: : 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 Date Name GA/Weeks Outcome Route Bth Weight Gen Labor Lgth Anesthesia Del Locatn Provider FOB 10/04/23 Jerri 39 live - full term 6lbs 10oz Female none [facility] Romero Delivery Date: 10/04/23 Last Updated by: Sarah Goncalves, RN see problem list for complications, and KW 39.1 SROM girl HPI 10wk ob Details: YRN DELAROSA is a 29 year old who presents for routine OB visit. OB Visit MARQUIS Calculator Estimated Delivery Date Method Current WG Current Estimate 08/10/25 Ultrasound #1 10w 5d Other Estimates 08/02/25 LMP (Certain) 11w 6d Expected Delivery Route/Plan Labor Preferences- CB/BF classes: [] labor support person: [] labor intervention preferences: [] pain management options preferred: [] cut cord/dad catch: [] : [] PP control planned: [] discussed possible routes of delivery and associated risks: [] special requests: [] Specific Issue/Plans Covid status: [] Flu vaccine: [] Tdap vaccine: [] Rhogam: [] LARC form signed: [] Problem list reviewed and updated with the most current plan of care details and appropriate ordersplaced. Relevant counseling for the gestational age provided. Continue routine care and follow up unless otherwise noted in visit notes/problem list details Initial Weight: Not Recorded Date -?-?-?-?-?-?-?-?-?-?-?-?- EGA Weight BP Urine Prot -?-?-?-?-?-?-?-?-?-?-?-?- Glucose FHR FuHt Pres Dilation -?-?-?-?-?-?-?-?-?-?-?-?- Effaced St Visit Note 12/19/24 -?-?-?-?-?-?-?-?-?-?--?-?- 6w 4d 127 lb 4 oz 103/68 -?-?-?-?-?-?-?-?-?-?-?-?- 144 -?-?-?-?-?-?-?-?-?-?-?-?- JV- CRL off by a week from LMP but she only had one cycle since her last . [place] 08/10/25. undecided about NIPT. 01/17/25 -?-?-?-?-?-?-?-?-?-?-?-?- 10w 5d 130 lb 1 oz 117/70 -?-?-?-?-?-?-?-?-?-?-?-?- 158 -?-?-?-?-?-?-?-?-?-?-?-?- SM- no vb elmira ng ACOG First Trimester First Trimester: Desire for , Alcohol, Tobacco Cessation, Illicit/Recreational Drug/Substance Use, Intimate Partner Violence, Barriers to care, Unstable Housing, Communication Barriers, Environmental/Work Hazards, Anticipated Course of Care, Toxoplasmosis Precations, Use of Any med ications, Sexual activity, Exercise, Dental Care, Sauna/Hot tub use, Seat Belt use, Childbirth classes/Hospital facilities, Travel, Indications for Ultrasound and Screening for Aneuploidy; Discussed Second Trimester Second Trimester: Signs and Symptoms of Labor, Selecting a care provider, Reproductive Life Planning & Contreception, Care Planning, Depression/Anxiety and Intimate Partner Violence; Discussed Tobacco Cessation Third Trimester Third Trimester: Pain Management Plans, Labor support person(s), Immediate Larc, Signs and Symptoms of Preeclampsia, Feeding No , Education and Family Medical Leave or Disability Forms Coding Level of Care Code OB Routine Diagnoses Supervision of high-risk O09.90 10 weeks gestation of Z3A.10 Weeks of gestation: 10 weeks Previous child with congenital anomaly, currently , antepartum O35.2XX0 Rh negative status during O26.899; Z67.91 Abnormal genetic test during O28.5 Assessment and Plan Assessment and Plan (1) Supervision of high-risk : Status: Acute Comment: , MARQUIS 08/02/25, PC: Jerri, : Indra (2) : Status: Acute Qualifiers: Weeks of gestation: 10 weeks Qualified Code(s): Z3A.10 - 10 weeks gestation of Comment: Discuss genetic/carrier testing - prior carrier done, undecided (3) Previous child with congenital anomaly, currently , antepartum: Status: Acute Comment: Daughter with VSD and persistent Left SVC, echo recommended at 22-24 weeks. 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 Higinio Rodriguez MD Age/Sex: 29/F [place] [facility] [place]: Signed Intake Vital Signs 11/16/23 08:30 12/19/24 09:44 01/17/25 15:28 Height 5 ft 7 in 5 ft 7 in 5 ft 7 in Weight: 130 lb 1 oz BMI 20.3 BP 117/70 Intake Visit Reasons: 10wk ob Manager Placement Required: No Is patient in pain?: No Allergies amoxicillin Allergy (Mild, Verified 01/17/25 15:30) Hives clarithromycin (From Biaxin) Allergy (Mild, Verified 01/17/25 15:30) Hives Medications ?Medication ?Instructions ?Recorded ?Confirmed ?Type multivitamin no.47-iron fum 27 1 cap PO DAILY pregnanc y 03/10/23 01/17/25 History mg-folate no.1 1 mg-dha 300 mg capsule (PNV-DHA) Last Menstrual Period: 10/26/24 Zika: Zika virus screening: Negative : No PFSH PFSH Medical History Abnormal genetic test during Abnormal Pap smear of cervix Surgical History H/O wisdom tooth extraction Family History Grandmother Breast cancer, Onset Age: 60 Social History adopted: No household members: spouse and children housing: apartment number of children: 1 current occupational status: employed 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; 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 occupational exposures/hazards: No pets and animals: No history of recent travel: Yes ( - October 2024) out of state: Yes out of country: No sexually active: Yes Smoking Status: Never smoker second hand exposure: No alcohol intake: current alcohol intake frequency: holidays/special occasions only details: Not while substance use type: does not use well-balanced diet: daily or most days caffeine: Yes Type: coffee Number of servings: 1 eating out: rarely or never during the past year weight has: remained stable what type of physical activity do you participate in: running and weight training frequency: 5-6 times per week duration: 30-45 minutes/day osbaldo/protestant: Amish seatbelt use: always do you feel safe at home: Yes additional social history: : 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 Date Name GA/Weeks Outcome Route Bth Weight Infant Gen Labor Lgth Anesthesia Del Locatn Provider FOB 10/04/23 Jerri 39 live - full term 6lbs 10oz Female none [facility] Romero Delivery Date: 10/04/23 Last Updated by: Sarah Goncalves RN see problem list for complications, and KW 39.1 SROM girl HPI 10wk ob Details: YRN DELAROSA is a 29 year old who presents for routine OB visit. OB Visit MARQUIS Calculator Estimated Delivery Date Method Current WG Current Estimate 08/10/25 Ultrasound #1 10w 5d Other Estimates 08/02/25 LMP (Certain) 11w 6d Expected Delivery Route/Plan Labor Preferences- CB/BF classes: [] labor support person: [] labor intervention preferences: [] pain management options preferred: [] cut cord/dad catch: [] : [] PP control planned: [] discussed possible routes of delivery and associated risks: [] special requests: [] Specific Issue/Plans Covid status: [] Flu vaccine: [] Tdap vaccine: [] Rhogam: [] LARC form signed: [] Problem list reviewed and updated with the most current plan of care details and appropriate orders placed. Relevant counseling for the gestational age provided. Continue routine care and follow up unless otherwise noted in visit notes/problem list details Initial Weight: Not Recorded Date -?-?-?-?-?-?-?-?-?-?-?-?- EGA Weight BP Urine Prot -?-?-?-?-?-?-?-?-?-?-?-?- Glucose FHR FuHt Pres Dilation -?-?-?-?-?-?-?-?-?-?-?-?- Effaced St Visit Note 12/19/24 -?-?-?-?-?-?-?-?-?-?--?-?- 6w 4d 127 lb 4 oz 103/68 -?-?-?-?-?-?-?-?-?-?-?-?- 144 -?-?-?-?-?-?-?-?-?-?-?-?- JV- CRL off by a week from LMP but she only had one cycle since her last . [place] 08/10/25. undecided about NIPT. 01/17/25 -?-?-?-?-?-?-?-?-?-?-?-?- 10w 5d 130 lb 1 oz 117/70 -?-?-?-?-?-?-?-?-?-?-?-?- 158 -?-?-?-?-?-?-?-?-?-?-?-?- SM- no vb crampi ng ACOG First Trimester First Trimester: Desire for , Alcohol, Tobacco Cessation, Illicit/Recreational Drug/Substance Use, Intimate Partner Violence, Barriers to care, Unstable Housing, Communication Barriers, Environmental/Work Hazards, Anticipated Course of Care, Toxoplasmosis Precations, Use of Any medications, Sexual activity, Exercise, Dental Care, Sauna/Hot tub use, Seat Belt use, Childbirth classes/Hospital facilities, Travel, Indications for Ultrasound and Screening for Aneuploidy; Discussed Second Trimester Second Trimester: Signs and Symptoms of Labor, Selecting a care provider, Reproductive Life Planning & Contreception, Care Planning, Depression/Anxiety and Intimate Partner Violence; Discussed Tobacco Cessation Third Trimester Third Trimester: Pain Management Plans, Labor support person(s), Immediate Larc, Signs and Symptoms of Preeclampsia, Infant Feeding No , [place] Education and Family Medical Leave or Disability Forms Coding Level of Care Code OB Routine Diagnoses Supervision of high-risk O09.90 10 weeks gestation of Z3A.10 Weeks of gestation: 10 weeks Previous child with congenital anomaly, currently , antepartum O35.2XX0 Rh negative status during O26.899; Z67.91 Abnormal genetic test during O28.5 Assessment and Plan Assessment and Plan (1) Supervision of high-risk : Status: Acute Comment: , MARQUIS 08/02/25, PC: Jerri, : Indra (2) : Status: Acute Qualifiers: Weeks of gestation: 10 weeks Qualified Code(s): Z3A.10 - 10 weeks gestation of Comment: Discuss genetic/carrier testing - prior carrier done, undecided (3) Previous child with congenital anomaly, currently , antepartum: Status: Acute Comment: Daughter with VSD and persistent Left SVC, echo recommended at 22-24 weeks. 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,GJB2-Related Orders: Orders POC Urinalysis 2 Dip (Clinic) Today 01/17/25 7412 <Electronically signed by Marisela chaudhary MD> Date _ Marisela Rodriguez MD Cosigner Signature: Date (if applicable) CC: ~ [facility] Work Phone: 1(276) 743-570407-30-2025 Evaluation note* Diagnosis Onset Date Resolution Status Admit Date Abnormal genetic test during acute December 19, 2024 9:37am acute December 19 9:37am Previous child with congenit al anomaly, currently , antepartum acute December 19, 2024 9:37am Rh negative status during acute December 19, 2024 9:37am Supervision of high-risk acute December 19, 2024 9:37am [facility] Work Phone: 1(799) 726-931607-30-2025 Evaluation note* Diagnosis Onset Date Resolution Status Admit Date Abnormal genetic test during acute December 19, 2024 9:37am acute December 19 9:37am Previous child with congenit al anomaly, currently , antepartum acute December 19, 2024 9:37am Rh negative status during acute December 19, 2024 9:37am Supervision of high-risk acute December 19, 2024 9:37am Abnormal genetic test during acute January 17 3:25pm acute January 17, 2 025 3:25pm Previous child with congenit al anomaly, currently , antepartum acute January 17 3:25pm Rh negative status during acute January 17 3:25pm Supervision of high-risk acute January 17 3:25pm [facility] Work Phone: 1(154) 197-557807-30-2025 Evaluation note* Diagnosis Onset Date Resolution Status Admit Date Abnormal genetic test during acute December 19, 2024 9:37am acute December 19 9:37am Previous child with congenital anomaly, currently , antepartum acute December 19, 2024 9:37am Rh negative status during acute December 19, 2024 9:37am Supervision of high-risk acute December 19, 2024 9:37am Abnormal genetic test during acute January 17 3:25pm acute January 17, 2 025 3:25pm Previous child with congenital anomaly, currently , antepartum acute December 3:25pm Rh negative status during acute January 17 3:25pm Supervision of high-risk acute January 17 3:25pm Abnormal genetic test during acute February 13, 2025 3:58pm acute January 3:58pm Previous child with congenital anomaly, currently , antepartum acute January 222024 3:58pm Rh negative status during acute February 13, 2025 3:58pm Supervision of high-risk acute February 13, 2025 3:58pm [facility] Work Phone: 1([phone]) 221-411608-14-2023 Chief complaint+Reason for visit Narrative * Chief Complaint NOB LMP 8/14 Reason for Visit Pre-conception couns eling Supervision of normal [facility] Work Phone: 1(415) 269-147208-14-2023 Chief complaint+Reason for visit Narrative * Chief Complaint NOB LMP 8 13 WK OB E-ORDER Reason for Visit Pre-conception couns eling Supervision of normal Pre-conception counseling Supervision of normal [facility] Work Phone: evaluation note* Diagnosis Onset Date Resolution Status Pre-conception counseling ac tribal Encounter for routine gynecological examination noneactive [facility] Work Phone: Evaluation note* Diagnosis Onset Date Resolution Status Pre-conception counseling ac tribal acute Supervision of normal [place] Work Phone: evaluation note* Diagnosis Onset Date Resolution Status Pre-conception counseling ac tribal acute Supervision of normal acute Pre-conception counseling ac tribal acute Supervision of normal [place] Work Phone: evaluation note* Diagnosis Onset Date Resolution Status Pre-conception counseling ac tribal acute Supervision of normal acute Pre-conception counseling ac tribal acute Supervision of normal acute Pre-conception counseling ac tribal acute Rh negative status during acute Supervision of normal acute ventricular septal def ect affecting antepartum care of mother acute Pre-conception counseling ac tribal acute Rh negative status during acute Supervision of normal [place] Work Phone: evaluation note* Diagnosis Onset Date Resolution Status ventricular septal def ect affecting antepartum care of mother acute acute Rh negative status during acute Supervision of normal acute Pre-conception counseling re solved Abnormal genetic test during acute ventricular septal def ect affecting antepartum care of mother acute acute Rh negative status during acute Supervision of normal acute Pre-conception counseling re solved Abnormal genetic test during acute ventricular septal def ect affecting antepartum care of mother acute acute Rh negative status during acute Supervision of normal acute Rh negative status during acute Abnormal genetic test during acute ventricular septal def ect affecting antepartum care of mother acute acute Rh negative status during acute Supervision of normal acute Abnormal genetic test during acute ventricular septal def ect affecting antepartum care of mother acute acute Rh negative status during acute Supervision of normal acute Abnormal genetic test during acute ventricular septal def ect affecting antepartum care of mother acute acute Rh negative status during acute Supervision of normal acute Abnormal genetic test during acute ventricular septal def ect affecting antepartum care of mother acute acute Rh negative status during acute Supervision of normal acute [facility] Work Phone: Evaluation note* Diagnosis Onset Date Resolution Status Admit Date Abnormal genetic test during acute December 19, 2024 9:37am acute December 19 9:37am Previous child with congenit al anomaly, currently , antepartum acute December 19, 2024 9:37am Rh negative status during acute December 19, 2024 9:37am Supervision of high-risk acute December 19, 2024 9:37am [facility] Work Phone: Reason for referral (narrative)No reason for referral information [facility] Work Phone: Summary Purpose Family History No Family History Records Found Relationship Condition Age at Onset Recorded Date/T sunil grandmother Malignant neoplasm of breast Unknown Relationship Condition Age at Onset Recorded Date/T sunil grandmother Malignant neoplasm of breast 60 Advance Directives No Advanced Directives Records FoundNo Advanced Directives Records FoundNo Advanced Directives Records Found Chief Complaint and Reason for Visit Chief Complaint 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) ENCOUNTER FOR SCREENING FOR MALIGNANT NEOPLASM OF Reason for Visit Pre-conception couns eling Encounter for routine gynecological examination Chief Complaint NOB LMP 01/03 13 WK OB E-ORDER 17 WK OB 21 WK OB Reason for Visit Pre-conception couns eling Supervision of normal Pre-conception counseling Supervision of normal Pre-conception counseling Rh negative status during Supervision of normal ventricular septal defect affecting antepartum care of mother Pre-conception counseling Rh negative status during Supervision of normal Chief Complaint 21 WK OB 25 WK OB 28 WK OB/GLUCOSE rhogam injection 30 WK OB 33 WK OB 35 WK OB 36 WK OB Reason for Visit ventricular se ptal defect affecting antepartum care of mother Rh negative status during Supervision of normal Pre-conception counseling Abnormal genetic test during ventricular septal defect affecting antepartum care of mother Rh negative status during Supervision of normal Pre-conception counseling Abnormal genetic test during ventricular septal defect affecting antepartum care of mother Rh negative status during Supervision of normal Rh negative status during Abnormal genetic test during ventricular septal defect affecting antepartum care of mother Rh negative status during Supervision of normal Abnormal genetic test during ventricular septal defect affecting antepartum care of mother Rh negative status during Supervision of normal Abnormal genetic test during ventricular septal defect affecting antepartum care of mother Rh negative status during Supervision of normal Abnormal genetic test during ventricular septal defect affecting antepartum care of mother Rh negative status during Supervision of normal Chief Complaint Admit Date Amb Documentation December 14, 2024 10:5 3am *EST* NOB LMP 10/26, [place]QU[place] 08/02December 19, 2 025 9:37am Reason for Visit Admit Date Abnormal genetic test during J 2024 9:37am December 19, 2024 9:37 am Previous child with congenit al anomaly, currently , antepartum December 19, 2024 9:37am Rh negative status during December 19, 2024 9:37am Supervision of high-risk December 19, 2024 9:37am Chief Complaint Admit Date Amb Documentation December 14, 2024 10:5 3am *EST* NOB LMP 10/26, MARQUIS 08/02December 19, 2 025 9:37am 10wk ob January 17, 2025 3: 25pm Reason for Visit Admit Date Abnormal genetic test during J matt 2024 9:37am December 19, 2024 9:37 am Previous child with congenit al anomaly, currently , antepartum December 19, 2024 9:37am Rh negative status during December 19, 2024 9:37am Supervision of high-risk December 19, 2024 9:37am Abnormal genetic test during A ugust 2024 3:25pm January 17, 2025 3: 25pm Previous child with congenit al anomaly, currently , antepartum January 17, 2025 3:25pm Rh negative status during Augu st 2024 3:25pm Supervision of high-risk Augus t 2024 3:25pm Chief Complaint Admit Date Amb Documentation December 14, 2024 10:5 3am *EST* NOB LMP 10/26, [place] 3/December 19, 2 025 9:37am 11wk ob January 17, 2025 3: 25pm 15wk OB February 13, 2025 3:58pm Reason for Visit Admit Date Abnormal genetic test during J matt 2024 9:37am December 19, 2024 9:37 am Previous child with congenit al anomaly, currently , antepartum December 19, 2024 9:37am Rh negative status during December 19, 2024 9:37am Supervision of high-risk December 19, 2024 9:37am Abnormal genetic test during A ugust 2024 3:25pm January 17, 2025 3: 25pm Previous child with congenit al anomaly, currently , antepartum January 17, 2025 3:25pm Rh negative status during Augu 2024 3:25pm Supervision of high-risk Decus 2024 3:25pm Abnormal genetic test during S eptember 2024 3:58pm February 13, 2025 3:58pm Previous child with congenit al anomaly, currently , antepartum February 13, 2025 3:58pm Rh negative status during Sept ember 2024 3:58pm Supervision of high-risk Sept [id number] 3:58pm Additional Source Comments INFORMATION SOURCE (unrecogn ized section and content) DATE CREATED AUTHOR 11/16/2017 [facility] DATE CREATED AUTHOR AUTHOR'S ORGANIZ ATION 03/16/2025 [facility] DATE CREATED AUTHOR AUTHOR'S ORGANIZ ATION 03/22/2025 [facility] Care Teams (unrecognized sec tion and content) Team Status: Active Member Role Status Dates Dr. Jb Birmingham MD Family Provider Active Dr. Jb Birmingham MD Primary Care Provider Active Team Status: Inactive Member Role Status Dates Dr. Jb Birmingham MD Primary Care Provider, Referr ing Provider Active Loreto Delaney CNM Attending Provider Active Team Status: Inactive Member Role Status Dates Dr. Jb Birmingham MD Primary Care Provider Active Loreto Delaney CNM Attending Provider, Referring Pr ovider Active Team Status: Active Member Role Status Dates Dr. Jb Birmingham MD Family Provider Active No Primary Care Physician Primary Care Provider Active Team Status: Inactive Member Role Status Dates Julee Blanc CNM Attending Provider Active No Primary Care Physician Primary Care Provider, Refer ring Provider Active Team Status: Inactive Member Role Status Dates No Primary Care Physician Primary Care Provider Active Julee Blanc CNM Attending Provider Active Team Status: Inactive Member Role Status Dates No Primary Care Physician Primary Care Provider, Refer ring Provider Active Dr. Mohini Arias DO Attending Provider Activ e Team Status: Inactive Member Role Status Dates No Primary Care Physician Primary Care Provider Active Julee Blanc CNM Attending Provider, Referring Pro vider Active Team Status: Inactive Member Role Status Dates No Primary Care Physician Primary Care Provider Active Dr. Mohini Arias DO Attending Provider, Refe rring Provider Active Team Status: Inactive Member Role Status Dates No Primary Care Physician Primary Care Provider, Refer ring Provider Active Dr. Marisela Rodriguez MD Attending Provider Active Team Status: Inactive Member Role Status Dates No Primary Care Physician Primary Care Provider, Refer ring Provider Active Julee Blanc CNM Attending Provider Active Team Status: Inactive Member Role Status Dates No Primary Care Physician Primary Care Provider Active Dr. Mohini Arias DO Attending Provider Activ e Team Status: Active Member Role/Relationship Status Dates Dr. Jb Birmingham MD Family Provider Active No Primary Care Physician Primary Care Provider Active Team Status: Active Member Role/Relationship Status Dates No Primary Care Physician Primary Care Provider Active Start: December 14, 2024 Sarah Goncalves RN Attending Provider Active St art: December 14, 2024 Team Status: Inactive Member Role/Relationship Status Dates No Primary Care Physician Primary Care Provider Active Start: December 19, 2024 End: December 19, 2024 No Primary Care Physician Referring Provider Active Start: December 19, 2024 End: December 19, 2024 Dr. Mohini Arias DO Attending Provider Activ e Start: December 19, 2024 End: December 19, 2024 Team Status: Inactive Member Role/Relationship Status Dates No Primary Care Physician Primary Care Provider Active Start: December 19, 2024 End: December 19, 2024 Dr. Mohini Arias DO Attending Provider Activ e Start: December 19, 2024 End: December 19, 2024 Team Status: Inactive Member Role/Relationship Status Dates No Primary Care Physician Primary Care Provider Active Start: January 17, 2025 End: January 17, 2025 No Primary Care Physician Referring Provider Active Start: January 17, 2025 End: January 17, 2025 Dr. Marisela Rodriguez MD Attending Provider Active Start: January 17, 2025 End: January 17, 2025 Team Status: Active Member Role/Relationship Status Dates Dr. Jb Birmingham MD Primary care physician Active No Primary Care Physician Primary care physician Activ e Team Status: Active Member Role/Relationship Status Dates No Primary Care Physician Primary care physician Activ e Start: December 14, 2024 Sarah Goncalves RN Attending physician Active S tart: December 14, 2024 Team Status: Inactive Member Role/Relationship Status Dates No Primary Care Physician Primary care physician Activ e Start: December 19, 2024 End: December 19, 2024 No Primary Care Physician Referring Provider Active Start: December 19, 2024 End: December 19, 2024 Dr. Mohini Arias DO Attending physician Acti ve Start: December 19, 2024 End: December 19, 2024 Team Status: Inactive Member Role/Relationship Status Dates No Primary Care Physician Primary care physician Activ e Start: December 19, 2024 End: December 19, 2024 Dr. Mohini Arias DO Attending physician Acti ve Start: December 19, 2024 End: December 19, 2024 Team Status: Inactive Member Role/Relationship Status Dates No Primary Care Physician Primary care physician Activ e Start: January 17, 2025 End: January 17, 2025 No Primary Care Physician Referring Provider Active Start: January 17, 2025 End: January 17, 2025 Dr. Marisela Rodriguez MD Attending physician Active Start: January 17, 2025 End: January 17, 2025 Team Status: Inactive Member Role/Relationship Status Dates No Primary Care Physician Primary care physician Activ e Start: January 24, 2025 End: January 24, 2025 Julee Blanc CNM Attending physician Active Start: January 24, 2025 End: January 24, 2025 Team Status: Inactive Member Role/Relationship Status Dates No Primary Care Physician Primary care physician Activ e Start: February 13, 2025 End: February 13, 2025 No Primary Care Physician Referring Provider Active Start: February 13, 2025 End: February 13, 2025 Amairani Agosto NP, [employer] Attending physician Active Start: February 13, 2025 End: February 13, 2025 Goals (unrecognized section and content) Type Care Experience svdLabor Preferences -CB/BF classes: yeslabor support person: Indra labor intervention preferences: pain management options preferred: prefer minimal intervention, open to touch, massage, counting breathing, hydrotherapycut cord/dad catch: indra yes!: yesPP control planned: []discussed possible routes of delivery and associated risks: []special requests: [] Care Experience Labor Preferences-CB /BF classes: []labor support person: []labor intervention preferences: []pain management options preferred: []cut cord/dad catch: []: []PP control planned: []discussed possible routes of delivery and associated risks: []special requests: [] FOR RECORDS PERTAINING TO PATIENTS WHO ARE [...] BE BASED ON THE PRIMARY CLINICAL RECORDS. [employer] provides no warranty or guarantee of the accuracy or completeness of information in this document.
[2025-05-22 12:23] LABS: Hematocrit 35.8 % (37-47); Hemoglobin 12.3 g/dL (12.0-15.0); Immature Granulocytes Count 0.040 X10^3/uL (0.0-0.0); Mean Corp Hgb Conc 34.4 g/dL (32-36); Mean Corpuscular Volume 90.4 fL (81-99); Mean Platelet Vol. 10.8 fl (6.2-12.0); NRBC Flagged by Analyzer 0 % (0-5); Platelet Count 223 K/mm3 (150-450); RBC Distribution Width CV 13.2 % (11.6-14.6); RBC Distribution Width SD 43.8 fl (35.1-43.9); Red Blood Count 3.96 M/mm3 (4.2-5.4); White Blood Count 5.5 K/mm3 (4.4-11.0)
[2025-05-22 12:46] LABS: HIV Nonreactive (Nonreactive); Syphilis Antibodies Nonreactive (Nonreactive)
[2025-05-22 12:51] LABS: Glucose Challenge Gest 1H 50g 84 mg/dL (70-140)
== END | disposition home or self-care (01) ==
LOC: BWCLAB 09:12
PROVIDERS: Visit Provider Obstetrics & Gynecology
DX: O09.92 Supervision of high risk pregnancy, unspecified, second trimester (principal); Z3A.00 Weeks of gestation of pregnancy not specified; Z13.1 Encounter for screening for diabetes mellitus
CPT/HCPCS: 36415; 82950; 85025; 86703; 86780; 86850; 86900; 86901